=== PATIENT | female | born 1950 | race Caucasian/White ===

== ENCOUNTER 2016-11-19 13:59 | Emergency (ER) | payer MEDICAID, OTHER ==
[~2016-11-19 13:59] MED LIST: BENGAY TOP; DIGO0.12 PO; LACT12%T TOPICAL; NYSTA15T TOPICAL; PROT40TA PO; Z.0.WALKERFRONT
[2016-11-19 14:00] VITALS: BP 110/56; PULSE 98; RESP 16; TEMP 98.9; O2SAT 98
--- NOTE | 2016-11-19 15:21 | RADRPT ---
EXAM DATE/TIME: 11/19/2016 14:50 [facility] COMPARISON: No previous studies available for comparison. INDICATIONS : Left femur pain, fell MEDICAL HISTORY : Chronic obstructive pulmonary disease. SURGICAL HISTORY : Esophageal surgery. ENCOUNTER: Initial ACUITY: 1 day PAIN SCORE: 10/10 LOCATION: Left Femur FINDINGS: 4 views of the left femur. Bone alignment within normal limits. No evidence of fracture. Diffuse art erial calcification. CONCLUSION: No evidence of fracture. Nolan Mccarthy MD on November 19, 2016 at 15:19 Board Certified Radiologist. This report was verified electronically.
--- NOTE | 2016-11-19 15:58 | PD ---
HPI Chief Complaint: Fall Time Seen by Provider: 15:46 Travel History International Travel<30 days: No Contact w/Intl Traveler<30days: No Traveled to known affect area: No History of Present Illness HPI Patient comes in complaining of left side pain began after a mechanical fall earlier today. Patient reports she ambulate with a walker. Patient states she lost her balance slip and fall, landing on her left side. Patient complaining of a spasming aching pain in her left femur midshaft. Patient denies doing anything for this. Patient denies anything making it better. Pain is worse with movement and palpation. Patient denies any chest pain pre-or post fall, headache, head injury, dizziness, change in vision or shortness breath, nausea, vomiting, loss or change in bowel or bladder,. PFSH Past Medical History Blood Disorders: No Cancer: No Cardiovascular Problems: No Diminished Hearing: No Endocrine: No Immune Disorder: No Musculoskeletal: No Neurologic: No Respiratory: No Seizures: Yes (last 4 years ) Past Surgical History Other Surgery: Yes (esophagus for dilitation, right ankle with pins in place ) Social History Alcohol Use: Yes (everyday) Tobacco Use: Yes (1/2 PPD) Substance Use: No Allergies-Medications (Allergen,Severity, Reaction): Coded Allergies: No Known Allergies (Verified , 06/25/15) Reported Meds & Prescriptions Reported Meds & Active Scripts Active Protonix (Pantoprazole Sodium) 40 Mg Tab 40 Mg PO Q12HR 30 Days Mycostatin Oint 15 gm (Nystatin) 15 Applic/15 Gm Oint 0 Applic TOPICAL BID 30 Days [place] (Menthol/Methyl Salicylate) 30 Gm Oint 1 Applic TOP QID PRN 30 Days Lac-Hydrin (Lactic Acid) 12 % Lotn 1 Applic TOPICAL BID 30 Days Digoxin 0.125 mg (Digoxin) 0.125 Mg Tab 0.125 Mg PO DAILY 30 Days Walker Front Wheel (Walkerfront) Device 1 Unit Review of Systems Except as stated in HPI: all other systems reviewed are Neg Physical Exam Narrative GENERAL: Well-developed, well nourished, in no acute distress, and non-ill appearing. SKIN: Focused skin assessment warm and dry. HEAD: Atraumatic. Normocephalic. EYES: Pupils equal and round. EOMI. No scleral icterus. No injection or drainage. ENT: No nasal bleeding or discharge. Mucous membranes pink and moist. NECK: Trachea midline. Supple. No nuclear rigidity. RESPIRATORY: No accessory muscle use. No respiratory distress. MUSCULOSKELETAL: No obvious deformities. No clubbing. No cyanosis. No edema. Full range of motion. Hip: FROM and equal BL with passive flexion, extension, Abduction, Adduction, and internal/external rotation. Pulses equal BL distal to injury. Capillary refill less than 2 seconds distal to injury and equal BL. FROM distal to injury and equal BL. Strength distal to injury equal BL. NV intact distal to injury and equal BL. Plantar flexion and dorsal flexion equal BL. Dorsal pulses equal BL. Sensation equal BL 1st web space. Patient reports tenderness to palpation over mid left thigh lateral aspect. There is no contusion, abrasion, or other traumatic injury. NEUROLOGICAL: Awake and alert. No obvious cranial nerve deficits. Motor grossly within normal limits. Normal speech. PSYCHIATRIC: Appropriate mood and affect; insight and judgment normal. Data Data Last Documented VS Vital Signs Date Time Temp Pulse Resp B/P (MAP) Pulse Ox O2 Delivery O2 Flow Rate FiO2 11/19/16 21:00 80 16 145/87 (106) 95 11/19/16 20:57 Room Air 11/19/16 14:00 98.9 Orders Orders Femur (Ap & Lat/2vws) (11/19/16 ) Ice/Cold Pack (11/19/16 15:55) Acetaminophen (Tylenol) (11/19/16 16:00) Ketorolac Inj (Toradol Inj) (11/19/16 18:45) Acetamin-Hydrocod 325-5 Mg ([place] 5-325 (11/19/16 18:45) [facility] Medical Decision Making Medical Screen Exam Complete: Yes Emergency Medical Condition: Yes Interpretation(s) Left femur x-ray read by the radiologist: No evidence of fracture. Differential Diagnosis Fracture, strain, contusion, other Narrative Course The patient appears to have suffered a contusion of the extremity. There is no clinical evidence to suspect bony injury by exam. Radiographic examination revealed no fracture seen at this time. The patient has full range of motion on active and passive motions. There is no significant edema. There is no proximal or distal joint effusion. The distal extremity appears neurovascularly intact, without evidence of neurovascular injury nor compartment syndrome. Tendon exam also was intact. The patient was discharged on pain medication instructions and given warnings for vascular compromise. The patient is to follow up with their regular physician or Orthopedics. The patient agrees with plan. Patient in no obvious distress upon re-evaluation. All pertinent Radiology result(s) discussed with patient. Discussed patient with Dr. Villegas prior to discharge, who is in agreement with plan of care and disposition. Any questions/ concerns in reference to patient diagnosis/condition discussed and clarified prior to patient's discharge. Reinforced sheer importance of close follow up with patient's primary physician or primary care clinic. Instructed patient to return to ED immediately, if symptoms return/worsen. Patient showed understanding of above instructions. Further instructions and recommendations were detailed in discharge paperwork. Patient ambulated without difficulty out of ED at discharge. Diagnosis Primary Impression: Contusion of left thigh, initial encounter Patient Instructions: Contusion in Adults (ED), General Instructions Additional Instructions: Follow-up with your primary care physician next week for reevaluation. Use over -the-counter Tylenol as needed for pain. Follow instructions on the packaging. Apply ice to affected area 20 minutes per hour as needed. Return to the emergency department if symptoms get worse. Disposition: 01 DISCHARGE HOME Condition: Stable Tong Gordon Nov 19, 2016 15:58
[2016-11-19] MEDS ORDERED: ACETAMINOPHEN 500 MG CPLT PO ONE (16:00)
[2016-11-19] MEDS ORDERED: ACETAMINOPHEN/HYDROcodone 325 MG/5 MG TAB PO ONE (18:45)
[2016-11-19] MEDS ORDERED: KETOROLAC TROMETHAMINE 30 MG/ML (IVP) VIAL IV PUSH ONE (18:45)
[2016-11-19 21:00] VITALS: BP 145/87
== END 2016-11-19 20:30 | disposition home or self-care (01) ==
LOC: NEDAMB 13:59
DX: S70.12XA Contusion of left thigh, initial encounter (principal); W01.0XXA Fall on same level from slipping, tripping and stumbling without subsequent striking against object, initial encounter; Y93.01 Activity, walking, marching and hiking; Y92.9 Unspecified place or not applicable; Z72.0 Tobacco use
CPT/HCPCS: 73552; 96374; 99284; J1885

== ENCOUNTER 2017-02-03 16:19 | Inpatient (IN) | payer SELFPAY ==
[2017-02-03 16:21] VITALS: BP 110/58; PULSE 114; RESP 16; TEMP 97.4; O2SAT 99
[2017-02-03] MEDS ORDERED: SODIUM CHLOR 0.9% 1000 ML INJ 1,000 ML IV ONE (17:08)
--- NOTE | 2017-02-03 17:13 | PD ---
HPI Chief Complaint: Medical Clearance Time Seen by Provider: 16:58 Travel History International Travel<30 days: No Contact w/Intl Traveler<30days: No Traveled to known affect area: No History of Present Illness HPI 66-year-old female presents to the emergency department for generalized weakness. Patient states she has been generally weak for approximately a month and has not been able to walk without falling. She reports her last fall was 3 days ago. Patient comes soaked in and covered with urine and stool. She is unable to transfer from wheelchair to the bed. The patient reports history of esophagitis and states she has not eaten solid food approximately 3 weeks. She denies any fevers or chills. She states she has anterior chest wall pain after she fell and hit her chest against a wheelchair, no radiation of pain. Patient states that she does rent a house and her landlord brought her here. Patient denies any shortness breath. No abdominal pain. No nausea, vomiting, diarrhea. She reports that she is not currently prescribed medications. Other than the history of esophagitis, she reports no other chronic medical problems. Moderate severity. No exacerbating or alleviating factors. Patient does report that she drinks one beer daily. PFSH Past Medical History Blood Disorders: No Cancer: No Cardiovascular Problems: No Diminished Hearing: No Endocrine: No Immune Disorder: No Musculoskeletal: No Neurologic: No Respiratory: No Seizures: Yes (last 4 years ) Past Surgical History Other Surgery: Yes (esophagus for dilitation, right ankle with pins in place ) Social History Alcohol Use: Yes (everyday) Tobacco Use: Yes (1/2 PPD) Substance Use: No Allergies-Medications (Allergen,Severity, Reaction): Coded Allergies: No Known Allergies (Verified Adverse Reaction, Unknown, 02/03/17) Reported Meds & Prescriptions Reported Meds & Active Scripts Active Active Prescriptions or Reported Medications Unobtainable Review of Systems Except as stated in HPI: all other systems reviewed are Neg Physical Exam Narrative GENERAL: Thin, chronically ill female patient, afebrile. SKIN: Focused skin assessment warm/dry. HEAD: Normocephalic. Atraumatic. ENT: Mucosa pink and moist. No erythema or exudates. No uvular edema. No uvular , palatal, or tonsillar deviation. Airway patent. Nasal turbinates appear normal without nasal blood, purulent drainage or septal hematoma. Bilateral tympanic membranes are clear without erythema or perforation. EYES: No scleral icterus. No injection or drainage. NECK: Supple, trachea midline. No JVD or lymphadenopathy. CARDIOVASCULAR: Regular rate and rhythm without murmurs, gallops, or rubs. Bilateral radial and pedal pulses are 2+. RESPIRATORY: Breath sounds equal bilaterally. No accessory muscle use. Sounds are clear to auscultation. GASTROINTESTINAL: Abdomen soft, non-tender, nondistended. No abdominal pain to palpation. MUSCULOSKELETAL: No cyanosis, or edema. Mild tenderness over anterior chest wall. BACK: Nontender without obvious deformity. No CVA tenderness. Data Data Last Documented VS Vital Signs Date Time Temp Pulse Resp B/P (MAP) Pulse Ox O2 Delivery O2 Flow Rate FiO2 02/03/17 19:28 98 18 100/69 (79) 98 02/03/17 17:15 Room Air 02/03/17 16:21 97.4 Orders Orders Electrocardiogram (02/03/17 17:08) Complete Blood Count With Diff (02/03/17 17:08) Comprehensive Metabolic Panel (02/03/17 17:08) Magnesium (Mg) (02/03/17 17:08) Ckmb (Isoenzyme) Profile (02/03/17 17:08) Troponin I (02/03/17 17:08) Act Partial Throm Time (Ptt) (02/03/17 17:08) Prothrombin Time / Inr (Pt) (02/03/17 17:08) Urinalysis - C+S If Indicated (02/03/17 17:08) Chest, Single Ap (02/03/17 17:08) Ct Brain W/O Iv Contrast(Rout) (02/03/17 17:08) Ct Cerv Spine W/O Contrast (02/03/17 17:08) Ecg Monitoring (02/03/17 17:08) Iv Access Insert/Monitor (02/03/17 17:08) Oximetry (02/03/17 17:08) Sodium Chloride 0.9% Flush (Ns Flush) (02/03/17 17:15) Sodium Chlor 0.9% 1000 Ml Inj (Ns 1000 M (02/03/17 17:08) Cath For Specimen (02/03/17 17:08) Alcohol (Ethanol) (02/03/17 17:16) Urine Culture (12/13/17 16:55) CKMB (02/03/17 18:05) CKMB% (02/03/17 18:05) Admit Order (Ed Use Only) (02/03/17 20:16) Labs Laboratory Tests Test 02/03/17 16:55 02/03/17 18:05 Urine Color YELLOW Urine Turbidity HAZY Urine pH 6.0 Urine Specific [place] 1.017 Urine Protein 30 mg/dL Urine Glucose (UA) NEG mg/dL Urine Ketones 150 mg/dL Urine Occult Blood NEG Urine Nitrite NEG Urine Bilirubin NEG Urine Urobilinogen 4.0 MG/DL Urine Leukocyte Esterase SMALL Urine RBC 1 /hpf Urine WBC 1 /hpf Urine Squamous Epithelial Cells 1 /hpf Urine Amorphous Sediment RARE Urine Bacteria MANY /hpf Urine Mucus FEW /lpf Microscopic Urinalysis Comment CULTURE INDICATED White Blood Count 6.7 TH/MM3 Red Blood Count 4.09 MIL/MM3 Hemoglobin 14.3 GM/DL Hematocrit 41.0 % Mean Corpuscular Volume 100.2 FL Mean Corpuscular Hemoglobin 34.8 PG Mean Corpuscular Hemoglobin Concent 34.8 % Red Cell Distribution Width 14.6 % Platelet Count 194 TH/MM3 Mean Platelet Volume 9.1 FL Neutrophils (%) (Auto) 77.9 % Lymphocytes (%) (Auto) 15.3 % Monocytes (%) (Auto) 6.4 % Eosinophils (%) (Auto) 0.0 % Basophils (%) (Auto) 0.4 % Neutrophils # (Auto) 5.2 TH/MM3 Lymphocytes # (Auto) 1.0 TH/MM3 Monocytes # (Auto) 0.4 TH/MM3 Eosinophils # (Auto) 0.0 TH/MM3 Basophils # (Auto) 0.0 TH/MM3 CBC Comment DIFF FINAL Differential Comment Prothrombin Time 11.7 SEC Prothromb Time International Ratio 1.2 RATIO Activated Partial Thromboplast Time 29.4 SEC Blood Urea Nitrogen 4 MG/DL Creatinine 0.24 MG/DL Random Glucose 87 MG/DL Total Protein 5.7 GM/DL Albumin 1.6 GM/DL Calcium Level 7.3 MG/DL Magnesium Level 1.5 MG/DL Alkaline Phosphatase 108 U/L Aspartate Amino Transf (AST/SGOT) 54 U/L Alanine Aminotransferase (ALT/SGPT) 36 U/L Total Bilirubin 0.5 MG/DL Sodium Level 131 MEQ/L Potassium Level 4.1 MEQ/L Chloride Level 98 MEQ/L Carbon Dioxide Level 16.0 MEQ/L Anion Gap 17 MEQ/L Estimat Glomerular Filtration Rate 290 ML/MIN Protein Corrected Calcium 8.1 MG/DL Total Creatine Kinase 454 U/L Creatine Kinase MB 6.5 NG/ML Creatine Kinase MB % 1.4 % Troponin I LESS THAN 0.02 NG/ML MDM Medical Decision Making Medical Screen Exam Complete: Yes Emergency Medical Condition: Yes Medical Record Reviewed: Yes Differential Diagnosis Electrolyte abnormality versus dehydration versus malnutrition versus intracranial abnormality versus UTI versus sepsis Narrative Course 66-year-old thin, chronically ill patient presents to the emergency department for evaluation generalized weakness, unable to walk, multiple falls. EKG, CBC, CMP, magnesium, CK, troponin, PTT, PT/INR, alcohol level, UA are ordered and pending. Chest x-ray, CT of the brain, CT of the cervical spine are ordered and pending. Patient is given normal saline 1 L IV bolus. EKG shows sinus rhythm with occasional PVC, heart rate 92. CBC shows no acute abnormality. CMP shows hyponatremia 131, anion gap of 17. Magnesium is 1.5. CK is 454. Troponin is less than 0.02. Coags show no acute abnormality. UA shows many bacteria, small leukocyte esterase. Chest x-ray shows no active disease, no effusion or pneumothorax. CT of the brain shows cerebral and cerebellar atrophy out of proportion to age, redemonstration of widespread white matter demyelination, no acute intracranial abnormality. CT of the cervical spine shows no acute findings. Patient is unable to ambulate is not a safe discharge home. Patient will be admitted for generalized weakness. Dr. Crane accepted admission. Diagnosis Primary Impression: Generalized weakness Additional Impression: Esophagitis Admitting Information Admitting Physician Requests: Observation Scripts Unable to Obtain Active Prescriptions or Reported Meds Savita Peter Feb 03, 2017 17:13
[2017-02-03 17:15] VITALS: BP 100/69; PULSE 105; RESP 18; O2SAT 99
[2017-02-03] MEDS ORDERED: SODIUM CHLORIDE 0.9% FLUSH 10 ML FLUSH IVF PRN (17:15)
--- NOTE | 2017-02-03 18:04 | RADRPT ---
EXAM DATE/TIME: 02/03/2017 17:46 [facility] COMPARISON: CT BRAIN W/O CONTRAST, June 25, 2015, 20:08. INDICATIONS : Trauma; fall. RADIATION DOSE: 26.65 CTDIvol (mGy) MEDICAL HISTORY : Seizures. Chronic obstructive pulmonary disease. SURGICAL HISTORY : None. ENCOUNTER: Initial ACUITY: 1 day PAIN SCALE: 5/10 LOCATION: cranial TECHNIQUE: Multiple contiguous axial images were obtained of the head. Using automated exposure control and adj ustment of the mA and/or kV according to patient size, radiation dose was kept as low as reasonably a chievable to obtain optimal diagnostic quality images. DICOM format image data is available electro nically for review and comparison. FINDINGS: CEREBRUM: Moderate diffuse renal atrophy with prominent periventricular white matter hypodensities. Coarse bila teral basal ganglia calcifications. The ventricles are normal for degree of atrophy. No evidence of midline shift, mass lesion, hemorrhage or acute infarction. No extra-axial fluid collections are see n. POSTERIOR FOSSA: Prominent cerebellar atrophy. Redemonstration of diffusely decreased density in the mellissa. The cerebel lum and brainstem are otherwise intact. The 4th ventricle is midline. The cerebellopontine angle is unremarkable. EXTRACRANIAL: The visualized portion of the orbits is intact. SKULL: The calvaria is intact. No evidence of skull fracture. CONCLUSION: 1. Cerebral and cerebellar atrophy out of proportion to age. 2. Redemonstration of widespread white matter demyelination. 3. No acute intracranial amount. Edin Whittaker MD on February 03, 2017 at 18:00 Board Certified Radiologist. This report was verified electronically.
--- NOTE | 2017-02-03 18:08 | RADRPT ---
EXAM DATE/TIME: 02/03/2017 17:46 [facility] COMPARISON: No previous studies available for comparison. INDICATIONS : Trauma; fall. RADIATION DOSE: 18.05 CTDIvol (mGy) MEDICAL HISTORY : Seizures. Chronic obstructive pulmonary disease. SURGICAL HISTORY : None. ENCOUNTER: Initial ACUITY: 1 day PAIN SCALE: 5/10 LOCATION: Bilateral neck TECHNIQUE: Volumetric scanning of the cervical spine was performed. Multiplanar reconstructions in the sagittal, coronal and oblique axial planes were performed. Using automated exposure control and adjustment o f the mA and/or kV according to patient size, radiation dose was kept as low as reasonably achievable to obtain optimal diagnostic quality images. DICOM format image data is available electronically f or review and comparison. FINDINGS: No acute fracture. Moderate degenerative disc disease at C5-6 and C6- 7 with mild degenerative iban listhesis of C5 on C6. Findings stable compared with June 2015. CONCLUSION: 1. No acute findings. Stable degenerative changes compared with 2016. Rudi Plunkett MD on February 03, 2017 at 18:04 Board Certified Radiologist. This report was verified electronically.
--- NOTE | 2017-02-03 18:11 | RADRPT ---
EXAM DATE/TIME: 02/03/2017 17:52 [facility] COMPARISON: No previous studies available for comparison. INDICATIONS : Chest pain after fall. MEDICAL HISTORY : Chronic obstructive pulmonary disease. SURGICAL HISTORY : None. ENCOUNTER: Initial ACUITY: 1 day PAIN SCORE: Non-responsive. LOCATION: Bilateral chest FINDINGS: A single view of the chest demonstrates the lungs to be symmetrically aerated without evidence of mas s, infiltrate or effusion. The cardiomediastinal contours are unremarkable. Osseous structures are intact. CONCLUSION: 1. No active disease. No effusion or pneumothorax. Rudi Plunkett MD on February 03, 2017 at 18:09 Board Certified Radiologist. This report was verified electronically.
[2017-02-03 18:54] LABS: AUTOMATED NEUTROPHIL # 5.2 TH/MM3 (1.8-7.7); BASOPHIL % 0.4 % (0.0-2.0); HEMO FLAGS DIFF FINAL; LYMPH % 15.3 % (9.0-44.0); MEAN CELL VOLUME 100.2 FL (80.0-100.0); MEAN CORPUSCULAR HEMOGLOBIN 34.8 PG (27.0-34.0); MEAN CORPUSCULAR HGB CONC 34.8 % (32.0-36.0); MONO % 6.4 % (0.0-8.0); NEUT % 77.9 % (16.0-70.0); PLATELET COUNT 194 TH/MM3 (150-450); RED BLOOD COUNT 4.09 MIL/MM3 (4.00-5.30); RED CELL DISTRIBUTION WIDTH 14.6 % (11.6-17.2); WHITE BLOOD COUNT 6.7 TH/MM3 (4.0-11.0)
[2017-02-03 19:04] LABS: APTT (PATIENT) 29.4 SEC (24.3-30.1); INTERNATIONAL NORMALIZED RATIO 1.2 RATIO; PROTHROMBIN TIME - PATIENT 11.7 SEC (9.8-11.6)
[2017-02-03 19:10] LABS: BACTERIA, URINE MANY /hpf; BLOOD, URINE NEG (NEG); COMMENT (UR) CULTURE INDICATED; CULTURE IF INDICATED CULTURE INDICATED; GLUCOSE,URINE NEG (NEG); KETONE, URINE 150 mg/dL (NEG); MUCUS URINE FEW /lpf (OCC); NITRITE,URINE NEG (NEG); SQUAMOUS EPITHELIAL CELL URINE 1 /hpf (0-5); URINE COLOR YELLOW (YELLW/STRAW)
[2017-02-03 19:19] LABS: ALKALINE PHOSPHATASE 108 U/L (45-117); ALT (GPT) 36 U/L (10-53); ANION GAP 17 MEQ/L (5-15); AST (GOT) 54 U/L (15-37); BLOOD UREA NITROGEN 4 MG/DL (7-18); CALCIUM-PROTEIN CORRECTED 8.1 MG/DL (8.5-10.1); CHLORIDE 98 MEQ/L (98-107); CREATINE KINASE 454 U/L (26-192); GLOMERULAR FILTRATION RATE 290 ML/MIN (>89); MAGNESIUM 1.5 MG/DL (1.5-2.5); POTASSIUM 4.1 MEQ/L (3.5-5.1); SODIUM (NA) 131 MEQ/L (136-145); TOTAL BILIRUBIN ADULT 0.5 MG/DL (0.2-1.0)
[2017-02-03 19:28] VITALS: BP 100/69; PULSE 98; RESP 18; O2SAT 98
[2017-02-03 19:57] LABS: CKMB 6.5 NG/ML (0.5-3.6)
--- NOTE | 2017-02-03 20:38 | HHI.HP ---
[facility] Service [facility] Primary Care Physician No Primary Care Physician Admission Diagnosis generalized weakness, esophagitis Diagnoses: Travel History International Travel<30 Days: No Contact w/Intl Traveler <30 Da: No Traveled to Known Affected Are: No History of Present Illness 66-year-old female with past medical history significant for unspecified esophageal disease status post which she believes to be esophageal dilation many years ago presents with weakness and inability to get out of bed for an indeterminate amount of time. The patient reports that she stays in bed and has a friend come over to take care of her every day. The patient endorses new onset dysphagia stating she has been unable to tolerate by mouth food for approximately 3 weeks. She states it feels as though it gets "stuck in her throat." The patient reports that she has had multiple falls over the past month and was unable to transfer from her wheelchair to the bed upon arrival to the emergency department. Review of Systems Denies fever or chills Denies blurry vision, otorrhea, rhinorrhea Denies sore throat and cough No chest pain, palpitations, shortness of breath No abdominal pain Denies constipation/diarrhea/nausea/vomiting Denies muscle pain/weakness No rashes Past Family Social History Past Medical History Questionable esophageal stricture Past Surgical History Remote history of esophageal dilation Reported Medications None Allergies: Coded Allergies: No Known Allergies (Verified Adverse Reaction, Unknown, 02/03/17) Family History Denies family history of CAD/DM Social History Reportedly smokes 1 pack per day. States she has been doing this for most of her life. Drinks one beer per day. Denies marijuana or illicit drugs. Physical Exam Vital Signs Vital Signs Date Time Temp Pulse Resp B/P (MAP) Pulse Ox O2 Delivery O2 Flow Rate FiO2 02/03/17 19:28 98 18 100/69 (79) 98 02/03/17 17:15 105 18 100/69 (79) 99 Room Air 02/03/17 16:21 97.4 114 16 110/58 (75) 99 Physical Exam GENERAL: Frail appearing female lying in bed SKIN: No rashes, ecchymoses or lesions. Cool and dry. HEAD: Atraumatic. Normocephalic. No temporal or scalp tenderness. EYES: Pupils equal round and reactive. Extraocular motions intact. No scleral icterus. No injection or drainage. ENT: Nose without bleeding, purulent drainage or septal hematoma. Throat without erythema, tonsillar hypertrophy or exudate. Uvula midline. Airway patent. NECK: Trachea midline. No JVD or lymphadenopathy. Supple, nontender, no meningeal signs. CARDIOVASCULAR: Regular rate and rhythm without murmurs, gallops, or rubs. RESPIRATORY: Clear to auscultation. Breath sounds equal bilaterally. No wheezes , rales, or rhonchi. GASTROINTESTINAL: Abdomen soft, non-tender, nondistended. No hepato-splenomegaly , or palpable masses. No guarding. MUSCULOSKELETAL: Extremities without clubbing, cyanosis, or edema. No joint tenderness, effusion, or edema noted. No calf tenderness. NEUROLOGICAL: Awake and alert. Cranial nerves II through XII intact. Motor and sensory grossly within normal limits. Normal speech. Laboratory Laboratory Tests Test 02/03/17 16:55 02/03/17 18:05 Urine Color YELLOW Urine Turbidity HAZY Urine pH 6.0 Urine Specific [place] 1.017 Urine Protein 30 Urine Glucose (UA) NEG Urine Ketones 150 Urine Occult Blood NEG Urine Nitrite NEG Urine Bilirubin NEG Urine Urobilinogen 4.0 Urine Leukocyte Esterase SMALL Urine RBC 1 Urine WBC 1 Urine Squamous Epithelial Cells 1 Urine Amorphous Sediment RARE Urine Bacteria MANY Urine Mucus FEW Microscopic Urinalysis Comment CULTURE INDICATED White Blood Count 6.7 Red Blood Count 4.09 Hemoglobin 14.3 Hematocrit 41.0 Mean Corpuscular Volume 100.2 Mean Corpuscular Hemoglobin 34.8 Mean Corpuscular Hemoglobin Concent 34.8 Red Cell Distribution Width 14.6 Platelet Count 194 Mean Platelet Volume 9.1 Neutrophils (%) (Auto) 77.9 Lymphocytes (%) (Auto) 15.3 Monocytes (%) (Auto) 6.4 Eosinophils (%) (Auto) 0.0 Basophils (%) (Auto) 0.4 Neutrophils # (Auto) 5.2 Lymphocytes # (Auto) 1.0 Monocytes # (Auto) 0.4 Eosinophils # (Auto) 0.0 Basophils # (Auto) 0.0 CBC Comment DIFF FINAL Differential Comment Prothrombin Time 11.7 Prothromb Time International Ratio 1.2 Activated Partial Thromboplast Time 29.4 Blood Urea Nitrogen 4 Creatinine 0.24 Random Glucose 87 Total Protein 5.7 Albumin 1.6 Calcium Level 7.3 Magnesium Level 1.5 Alkaline Phosphatase 108 Aspartate Amino Transf (AST/SGOT) 54 Alanine Aminotransferase (ALT/SGPT) 36 Total Bilirubin 0.5 Sodium Level 131 Potassium Level 4.1 Chloride Level 98 Carbon Dioxide Level 16.0 Anion Gap 17 Estimat Glomerular Filtration Rate 290 Protein Corrected Calcium 8.1 Total Creatine Kinase 454 Creatine Kinase MB 6.5 Creatine Kinase MB % 1.4 Troponin I LESS THAN 0.02 Date/Time Source Procedure Growth Status 02/03/17 16:55 Urine Random Urine Urine Culture Pending Received Result Diagram: 02/03/17 18002/03/17 180 Caprini VTE Risk Assessment Caprini VTE Risk Assessment: Mod/High Risk (score >= 2) Caprini Risk Assessment Model Point Value = 1 Point Value = 2 Point Value = 3 Point Value = 5 Age 41-60 Minor surgery BMI > 25 kg/m2 Swollen legs Varicose veins or History of unexplained or recurrent spontaneous Oral contraceptives or hormone replacement Sepsis (< 1 month) Serious lung disease, including pneumonia (< 1 month) Abnormal pulmonary function Acute myocardial infarction Congestive heart failure (< 1 month) History of inflammatory bowel disease Medical patient at bed rest Age 61-74 Arthroscopic surgery Major open surgery (> 45 min) Laparoscopic surgery (> 45 min) Malignancy Confined to bed (> 72 hours) Immobilizing plaster cast Central venous access Age >= 75 History of VTE Family history of VTE Factor V Leiden Prothrombin [id number] Lupus anticoagulant Anticardiolipin antibodies Elevated serum homocysteine Heparin-induced thrombocytopenia Other congenital or acquired thrombophilia Stroke (< 1 month) Elective arthroplasty Hip, pelvis, or leg fracture Acute spinal cord injury (< 1 month) Prophylaxis Regimen Total Risk Factor Score Risk Level Prophylaxis Regimen 0-1 Low Early ambulation 2 Moderate Order ONE of the following: *Sequential Compression Device (SCD) *Heparin 5000 units SQ BID 3-4 Higher Order ONE of the following medications: *Heparin 5000 units SQ TID *Enoxaparin/Lovenox 40 mg SQ daily (WT < 150 kg, CrCl > 30 mL/min) *Enoxaparin/Lovenox 30 mg SQ daily (WT < 150 kg, CrCl > 10-29 mL/min) *Enoxaparin/Lovenox 30 mg SQ BID (WT < 150 kg, CrCl > 30 mL/min) AND/OR *Sequential Compression Device (SCD) 5 or more Highest Order ONE of the following medications: *Heparin 5000 units SQ TID (Preferred with Epidurals) *Enoxaparin/Lovenox 40 mg SQ daily (WT < 150 kg, CrCl > 30 mL/min) *Enoxaparin/Lovenox 30 mg SQ daily (WT < 150 kg, CrCl > 10-29 mL/min) *Enoxaparin/Lovenox 30 mg SQ BID (WT < 150 kg, CrCl > 30 mL/min) AND *Sequential Compression Device (SCD) Assessment and Plan Assessment and Plan Assessment/plan: 1. Progressively worsening generalized weakness/failure to thrive/dysphasia Head CT with cerebellar and cerebral atrophy out of proportion to age and widespread white matter demyelination, patient without lateralizing deficits Concern for esophageal stricture given dysphasia, gastroenterology consulted The patient is likely unsafe to live on her own, physical therapy evaluation ordered. She will likely need placement. Albumin 1.6 Regular diet with ensure supplementation once patient able to tolerate by mouth 2. Alcohol/tobacco abuse Cessation counseling provided Folate/thiamine/multivitamins [facility] protocol FEN CLD Monitor electrolytes SCDs Case discussed with ER physician at length Randee Crane MD Feb 03, 2017 20:38
[2017-02-03 20:46] LABS: ALCOHOL LESS THAN 3 MG/DL (0-5)
[2017-02-03] MEDS ORDERED: SODIUM CHLORIDE 0.9% FLUSH 10 ML FLUSH IV FLUSH PRN (21:00)
[2017-02-03] MEDS: SODIUM CHLORIDE 0.9% FLUSH 10 ML FLUSH IV FLUSH SCH (21:00)
[2017-02-03] MEDS ORDERED: ONDANSETRON HCL 4 MG/2 ML VIAL IVP PRN (21:00)
[2017-02-03] MEDS ORDERED: FLUMAZENIL 0.5 MG/5 ML VIAL IV PUSH PRN (21:00)
[2017-02-03] MEDS ORDERED: LORazepam 1 MG TAB PO PRN (21:00)
[2017-02-03] MEDS ORDERED: ACETAMINOPHEN 325 MG TAB PO PRN (21:00)
[2017-02-03] MEDS ORDERED: NALOXONE HCL 0.4 MG/ML AMP IV PUSH PRN (21:00)
[2017-02-03] MEDS ORDERED: LORazepam 2 MG TAB PO PRN (21:00)
[2017-02-03 21:57] VITALS: BP 98/63; PULSE 97; RESP 17; TEMP 98; O2SAT 97
[2017-02-04] VITALS (8 sets, daily range): BP systolic 88–116; BP diastolic 51–75; PULSE 67–107; RESP 15–18; TEMP 98–98.3; O2SAT 91–97
[2017-02-04 07:01] LABS: AUTOMATED NEUTROPHIL # 3.2 TH/MM3 (1.8-7.7); BASOPHIL % 0.4 % (0.0-2.0); EOSINOPHIL % 0.5 % (0.0-4.0); HEMATOCRIT 35.4 % (35.0-46.0); HEMO FLAGS DIFF FINAL; LYMPH % 27.1 % (9.0-44.0); LYMPHOCYTE # 1.3 TH/MM3 (1.0-4.8); MEAN CELL VOLUME 100.9 FL (80.0-100.0); MEAN CORPUSCULAR HEMOGLOBIN 34.8 PG (27.0-34.0); MEAN CORPUSCULAR HGB CONC 34.5 % (32.0-36.0); MONO % 7.7 % (0.0-8.0); NEUT % 64.3 % (16.0-70.0); PLATELET COUNT 151 TH/MM3 (150-450); RED BLOOD COUNT 3.51 MIL/MM3 (4.00-5.30); RED CELL DISTRIBUTION WIDTH 14.7 % (11.6-17.2); WHITE BLOOD COUNT 4.9 TH/MM3 (4.0-11.0)
[2017-02-04 07:38] LABS: POTASSIUM 3.4 MEQ/L (3.5-5.1)
[2017-02-04 07:55] LABS: CALCIUM-PROTEIN CORRECTED 8.9 MG/DL (8.5-10.1)
--- NOTE | 2017-02-04 09:32 | PD.CONS ---
HPI History of Present Illness This is a 66 year old female with hx severe esophagitis who presents with dysphagia, inability to walk, weakness. Onset 3 weeks ago. ARound this time she did have a fall. When she eats she feels like it gets stuck and indicates sternal area, and then she vomits the food back up. This is mostly with solid food but sometimes liquids. She had episode of this and says a surgery was done. Per EMR she had EGD 01/2015 with findings of LA class D esophagitis, poss candidiasis esophagus , tight GE junction and scope not passed through d/t bleeding and tearing of mucosa on contact. She had subsequent EGD in 06/[address] Dumont and dilatation of esophageal stricture, path benign. She has never follow up in our office. SHe thinks she has lost weight from not being able to eat but she does not know for sure. Denies n/v, diarrhea, constipation, blood in stool, black tarry stool. Never had colonoscopy. (Marlee Acuña) [facility] Past Medical History Class D esophagitis esophageal stricture Past Surgical History history of esophageal dilation ankle surgery (Marlee Acuña) Coded Allergies: No Known Allergies (Verified Allergy, Unknown, 02/03/17) Family History Denies family history of CAD/DM Social History Reportedly smokes 1 pack per day. States she has been doing this for most of her life. Drinks one beer per day. Denies marijuana or illicit drugs. (Marlee Acuña) Review of Systems Constitutional: COMPLAINS OF: Weight loss Eyes: DENIES: Blurred vision Ears, nose, mouth, throat: DENIES: Hearing loss Respiratory: COMPLAINS OF: Cough Cardiovascular: DENIES: Chest pain Gastrointestinal: COMPLAINS OF: Difficulty Swallowing, DENIES: Abdominal pain, Black stools, Bloody stools, Constipation, Diarrhea, Nausea, Vomiting, Hematemesis Genitourinary: DENIES: Hematuria Musculoskeletal: DENIES: Joint Swelling Integumentary: DENIES: Pruritus Neurologic: COMPLAINS OF: Localized weakness Psychiatric: DENIES: Confusion (Marlee Acuña) GI Exam Vitals I&O Vital Signs Date Time Temp Pulse Resp B/P (MAP) Pulse Ox O2 Delivery O2 Flow Rate FiO2 02/04/17 08:00 98.1 105 16 116/75 (89) 97 12/14/17 03:04 98.1 98 17 101/57 (72) 97 02/03/17 21:57 98.0 97 17 98/63 (75) 97 02/03/17 21:31 02/03/17 19:28 98 18 100/69 (79) 98 02/03/17 17:15 105 18 100/69 (79) 99 Room Air 02/03/17 16:21 97.4 114 16 110/58 (75) 99 I/O 02/03/17 02/03/17 02/03/17 02/04/17 02/04/17 02/04/17 06:59 14:59 22:59 06:59 14:59 22:59 Intake Total 1000 ml Balance 1000 ml Intake IV Total 1000 ml Imaging Last Impressions Head CT 02/03/171707 Signed Impressions: Service Date/Time: Friday, February 03, 2017 17:46 - CONCLUSION: 1. Cerebral and cerebellar atrophy out of proportion to age. 2. Redemonstration of widespread white matter demyelination. 3. No acute intracranial amount. Edin Whittaker MD Chest X-Ray 02/03/171707 Signed Impressions: Service Date/Time: Friday, February 03, 2017 17:52 - CONCLUSION: 1. No active disease. No effusion or pneumothorax. Rudi Plunkett MD Cervical Spine CT 02/03/171707 Signed Impressions: Service Date/Time: Friday, February 03, 2017 17:46 - CONCLUSION: 1. No acute findings. Stable degenerative changes compared with 2016. Rudi Plunkett MD Laboratory Test 02/03/17 16:55 02/03/17 18:05 02/04/17 05:58 Urine Color YELLOW Urine Turbidity HAZY Urine pH 6.0 Urine Specific [place] 1.017 Urine Protein 30 mg/dL Urine Glucose (UA) NEG mg/dL Urine Ketones 150 mg/dL Urine Occult Blood NEG Urine Nitrite NEG Urine Bilirubin NEG Urine Urobilinogen 4.0 MG/DL Urine Leukocyte Esterase SMALL Urine RBC 1 /hpf Urine WBC 1 /hpf Urine Squamous Epithelial Cells 1 /hpf Urine Amorphous Sediment RARE Urine Bacteria MANY /hpf Urine Mucus FEW /lpf Microscopic Urinalysis Comment CULTURE INDICATED White Blood Count 6.7 TH/MM3 4.9 TH/MM3 Red Blood Count 4.09 MIL/MM3 3.51 MIL/MM3 Hemoglobin 14.3 GM/DL 12.2 GM/DL Hematocrit 41.0 % 35.4 % Mean Corpuscular Volume 100.2 FL 100.9 FL Mean Corpuscular Hemoglobin 34.8 PG 34.8 PG Mean Corpuscular Hemoglobin Concent 34.8 % 34.5 % Red Cell Distribution Width 14.6 % 14.7 % Platelet Count 194 TH/MM3 151 TH/MM3 Mean Platelet Volume 9.1 FL 9.2 FL Neutrophils (%) (Auto) 77.9 % 64.3 % Lymphocytes (%) (Auto) 15.3 % 27.1 % Monocytes (%) (Auto) 6.4 % 7.7 % Eosinophils (%) (Auto) 0.0 % 0.5 % Basophils (%) (Auto) 0.4 % 0.4 % Neutrophils # (Auto) 5.2 TH/MM3 3.2 TH/MM3 Lymphocytes # (Auto) 1.0 TH/MM3 1.3 TH/MM3 Monocytes # (Auto) 0.4 TH/MM3 0.4 TH/MM3 Eosinophils # (Auto) 0.0 TH/MM3 0.0 TH/MM3 Basophils # (Auto) 0.0 TH/MM3 0.0 TH/MM3 CBC Comment DIFF FINAL DIFF FINAL Differential Comment Prothrombin Time 11.7 SEC Prothromb Time International Ratio 1.2 RATIO Activated Partial Thromboplast Time 29.4 SEC Blood Urea Nitrogen 4 MG/DL 4 MG/DL Creatinine 0.24 MG/DL 0.18 MG/DL Random Glucose 87 MG/DL 69 MG/DL Total Protein 5.7 GM/DL 4.3 GM/DL Albumin 1.6 GM/DL Calcium Level 7.3 MG/DL 7.3 MG/DL Magnesium Level 1.5 MG/DL Alkaline Phosphatase 108 U/L Aspartate Amino Transf (AST/SGOT) 54 U/L Alanine Aminotransferase (ALT/SGPT) 36 U/L Total Bilirubin 0.5 MG/DL Sodium Level 131 MEQ/L 136 MEQ/L Potassium Level 4.1 MEQ/L 3.4 MEQ/L Chloride Level 98 MEQ/L 106 MEQ/L Carbon Dioxide Level 16.0 MEQ/L 16.0 MEQ/L Anion Gap 17 MEQ/L 14 MEQ/L Estimat Glomerular Filtration Rate 290 ML/MIN 404 ML/MIN Protein Corrected Calcium 8.1 MG/DL 8.9 MG/DL Total Creatine Kinase 454 U/L Creatine Kinase MB 6.5 NG/ML Creatine Kinase MB % 1.4 % Troponin I LESS THAN 0.02 NG/ML Ethyl Alcohol Level LESS THAN 3 MG/DL Date/Time Source Procedure Growth Status 02/03/17 16:55 Urine Random Urine Urine Culture Pending Received Physical Examination GENERAL: emaciated HEENT: PERRL; normocephalic; atraumatic; no jaundice. CHEST: rhonchi, shallow respiration CARDIAC: RRR ABDOMEN: Soft, nondistended, nontender; no hepatosplenomegaly; bowel sounds are present in all four quadrants. EXTREMITIES: No clubbing, cyanosis, or edema. SKIN: Normal; no rash; no jaundice. SECURITY TECH: No focal deficits; alert and oriented times three. (Marlee Acuña) Assessment and Plan Plan ASSESSMENT - dysphagia - bolus sensation, regurgitation, worse with solids. hx stricture, esophagitis. EGD & dilatation 06/2015. did d/w pt possiblity of PEG tube placement during EGD but she declines at this time. per EMR plan is to d/c her to a facility as she cannot take care of herself - weakness, poor nutrition status PLAN - EGD with poss dilatation tomorrow - obtain consent - NPO after midnight - consider adding boost or ensure - further recs to follow This pt seen by myself and Dr Sood and this note is written on his behalf (Marlee Acuña) Physician Comments Patient seen and examined Agree with above Continue with current supportive care Monitor labs Patient with complaints of dysphagia, globus sensation, with noted malnutrition Patient declining PEG tube at this point EGD tomorrow with possible dilation Nutritional support with nutritional supplements Agree with nurse assisted facility post discharge (Star Sood MD) Marlee Acuña Feb 04, 2017 09:32 Star Sood MD Feb 04, 2017 17:35
[2017-02-04] MEDS: THIAMINE HCL 100 MG TAB PO SCH (11:13)
[2017-02-04] MEDS: MULTIVITAMINS/MINERALS THERAPEUTIC TAB PO SCH (11:13)
[2017-02-04] MEDS: SODIUM CHLORIDE 0.9% FLUSH 10 ML FLUSH IV FLUSH SCH ×2 (11:14→22:26)
[2017-02-04] MEDS: FOLIC ACID 1 MG TAB PO SCH (11:14)
--- NOTE | 2017-02-04 15:03 | HHI.PR ---
Subjective Remarks Very cachectic 66 years old female resting in bed She is afebrile, complained of pain in her feet, no chest pain or short of breath Objective Vitals Vital Signs Date Time Temp Pulse Resp B/P (MAP) Pulse Ox O2 Delivery O2 Flow Rate FiO2 02/04/17 13:02 98.2 67 18 116/71 (86) 96 02/04/17 12:00 98.3 107 17 112/68 (83) 94 02/04/17 08:00 98.1 105 16 116/75 (89) 97 02/04/17 03:04 98.1 98 17 101/57 (72) 97 02/03/17 21:57 98.0 97 17 98/63 (75) 97 02/03/17 21:31 02/03/17 19:28 98 18 100/69 (79) 98 02/03/17 17:15 105 18 100/69 (79) 99 Room Air 02/03/17 16:21 97.4 114 16 110/58 (75) 99 I/O 02/03/17 02/03/17 02/03/17 02/04/17 02/04/17 02/04/17 07:00 15:00 23:00 07:00 15:00 23:00 Intake Total 1000 ml Balance 1000 ml Intake IV Total 1000 ml Result Diagram: 02/04/17 0558 02/04/17 0558 Imaging Last Impressions Head CT 02/03/171707 Signed Impressions: Service Date/Time: Friday, February 03, 2017 17:46 - CONCLUSION: 1. Cerebral and cerebellar atrophy out of proportion to age. 2. Redemonstration of widespread white matter demyelination. 3. No acute intracranial amount. Edin Whittaker MD Chest X-Ray 02/03/171707 Signed Impressions: Service Date/Time: Friday, February 03, 2017 17:52 - CONCLUSION: 1. No active disease. No effusion or pneumothorax. Rudi Plunkett MD Cervical Spine CT 02/03/171707 Signed Impressions: Service Date/Time: Friday, February 03, 2017 17:46 - CONCLUSION: 1. No acute findings. Stable degenerative changes compared with 2016. Rudi Plunkett MD Objective Remarks GENERAL: This is very cachectic 66 years old female, frail with poor personal hygiene, resting comfortably in bed SKIN: No rashes, warm and dry HEAD: Atraumatic. Normocephalic. EYES: Pupils equal round and reactive. Extraocular motions intact. No scleral icterus. ENT: Nose without bleeding, or drainage, Airway patent. NECK: Trachea midline. Supple CARDIOVASCULAR: Regular rate and rhythm without murmurs, gallops, or rubs. RESPIRATORY: Fair air entry bilaterally. No wheezes, rales, or rhonchi. GASTROINTESTINAL: Abdomen soft, non-tender, nondistended. Positive bowel sounds MUSCULOSKELETAL: Extremities without clubbing, cyanosis, or edema. Pedal pulses appreciated NEUROLOGICAL: Awake and alert. Moves all extremity. Normal speech.no focal neurological deficit A/P Assessment and Plan 1. Failure to thrive with progressive weakness and dysphagia Head CT with cerebellar and cerebral atrophy out of proportion to age and widespread white matter demyelination, patient without lateralizing deficits Concern for esophageal stricture given dysphasia, GI consulted appreciated their input, and for EGD with dilatation in a.m. PT OT eval patient most likely will need rehabilitation placement Malnutrition with Albumin 1.6 Regular diet with ensure supplementation once patient able to tolerate by mouth Consult catering sous chef 2. Alcohol/tobacco abuse Cessation counseling provided Folate/thiamine/multivitamins [facility] protocol Jose Medrano MD Feb 04, 2017 15:03
[2017-02-04] MEDS ORDERED: SODIUM CHLOR 0.9% 250 ML INJ 250 ML IV ONE (16:15)
--- NOTE | 2017-02-04 16:46 | EKG ---
Date Performed: 02/03/2017 Time Performed: 18:43:28 PTAGE: 66 years EKG: Sinus rhythm WITH OCCASIONAL VENTRICULAR PREMATURE COMPLEXES BORDERLINE ECG PREVIOUS TRACING : 07/05/2015 18.48 Since the prior tracing, the ectopic atrial rhythm has reso lved, and the present rhythm is probably sinus rhythm, but because of the artifact, that cannot be st ated with certainty. The PVCs are new. The tracings are difficult to compare directly because of the poor quality of the present tracing. DOCTOR: Margie Hawkins Interpretating Date/Time 02/04/2017 16:46:16
[2017-02-04] MEDS ORDERED: INSULIN HUMAN REGULAR 1,000 UNITS/10 ML VIAL SQ PRN (18:00)
[2017-02-04] MEDS ORDERED: METOPROLOL TARTRATE 25 MG TAB PO PRN (18:00)
[2017-02-04] MEDS ORDERED: CHLORHEXIDINE GLUCONATE 2 % 1 PACK (2 CLOTHS) TOPICAL PRN (18:00)
[2017-02-04] MEDS ORDERED: LACTATED RINGER'S 1000 ML IV PRN (18:00)
[2017-02-04] MEDS ORDERED: SODIUM CHLORID 0.9% 500 ML IV PRN (18:00)
[2017-02-04] MEDS ORDERED: POVIDONE IODINE 5% (ANTISEPSIS KIT) 4 APPLICATIONS EACH NARE PRN (18:00)
[2017-02-04] MEDS ORDERED: DEXT 5%-NACL 0.45% 500 ML INJ 500 ML IV ONE (21:00)
[2017-02-04] MEDS ORDERED: SODIUM CHLOR 0.9% 1000 ML INJ 1,000 ML IV SCH (21:00)
[2017-02-05] VITALS (9 sets, daily range): BP systolic 92–121; BP diastolic 55–69; PULSE 64–100; RESP 15–28; TEMP 97.9–98.9; O2SAT 88–99
[2017-02-05] MEDS: MULTIVITAMINS/MINERALS THERAPEUTIC TAB PO SCH (09:00)
[2017-02-05] MEDS: THIAMINE HCL 100 MG TAB PO SCH (09:00)
[2017-02-05] MEDS: SODIUM CHLORIDE 0.9% FLUSH 10 ML FLUSH IV FLUSH SCH ×2 (09:00→20:31)
[2017-02-05] MEDS: FOLIC ACID 1 MG TAB PO SCH (09:00)
--- NOTE | 2017-02-05 11:45 | HHI.GIFU ---
Subjective Remarks EGD performed with balloon dilatation of stricture at GE junction. Balloon inflated to 13.5, 14.5 and 15.5 mm. small mucosal rent present. Esophagitis present and biopsies performed. Hiatal hernia present. Gastritis present and biopsy performed in antrum. duodenitis present. Objective Vitals I&O Vital Signs Date Time Temp Pulse Resp B/P (MAP) Pulse Ox O2 Delivery O2 Flow Rate FiO2 02/05/17 07:20 98.3 99 16 95/57 (70) 96 02/05/17 03:39 98.9 100 18 92/58 (69) 98 02/05/17 00:02 97.9 99 15 92/55 (67) 95 02/04/17 20:18 98.0 101 15 93/51 (65) 93 02/04/17 18:09 102/52 (69) 02/04/17 15:48 92/52 (65) 02/04/17 15:33 98.0 98 15 88/53 (65) 91 02/04/17 13:02 98.2 67 18 116/71 (86) 96 02/04/17 12:00 98.3 107 17 112/68 (83) 94 I/O 02/04/17 02/04/17 02/04/17 02/05/17 02/05/17 02/05/17 07:00 15:00 23:00 07:00 15:00 23:00 Intake Total 200 ml 200 ml Balance 200 ml 200 ml Intake Oral 200 ml Other 200 ml Laboratory Date/Time Source Procedure Growth Status 02/03/17 16:55 Urine Random Urine Urine Culture - Final Viridans Streptococcus Grp Complete Physical Exam HEENT: Pupils round and reactive to light; normocephalic; atraumatic; no jaundice. Throat is clear. NECK: Neck is supple, no JVD, no lymphadenopathy. CHEST: Chest is clear to auscultation and percussion. CARDIAC: Regular rate and rhythm with no murmur gallop or rubs. ABDOMEN: Soft, nondistended, nontender; no hepatosplenomegaly; bowel sounds are present in all four quadrants. EXTREMITIES: No clubbing, cyanosis, or edema. SKIN: Normal; no rash; no jaundice. DISTRIBUTION SUPERINTENDENT: No focal deficits; alert and oriented times three. Assessment and Plan Plan ASSESSMENT - dysphagia - bolus sensation, regurgitation, worse with solids. hx stricture, esophagitis. EGD & dilatation 06/2015. did d/w pt possiblity of PEG tube placement during EGD but she declines at this time. per EMR plan is to d/c her to a facility as she cannot take care of herself - weakness, poor nutrition status EGD with dilatation and biopsy performed on 02/05 Distal stricture in esophagus with severe esophagitis consistent with reflux. Gastritis. Biopsy taken. PLAN - Full liquid diet - consider adding boost or ensure - further recs to follow - PPI BID for one week then daily. - Repeat EGD with dilatation in 2 weeks. Sunny Heard MD Feb 05, 2017 11:45
[2017-02-05] MEDS ORDERED: DO NOT ADM ANY ANTICOAGULANT DRUGS PRN (11:47)
[2017-02-05] MEDS ORDERED: *RESP: ALBUTEROL 2.5 MG/3 ML NEB (PRN) PERIprocedural Use ONLY NEB ONE (11:55)
--- NOTE | 2017-02-05 11:56 | PD.CONS ---
Consult Service Palliative Care . Consult Requested By Dr. Medrano . Primary Care Physician No Primary Care Physician . Reason for Consultation a. To assist with evaluation and management of symptoms including: debility , dysphagia b. To assist medical decision maker(s) with: better understanding of current medical conditions; weighing benefits/burdens of medical treatment options; making medical treatment decisions. . (Daina Jha) HPI History of Present Illness Ms. Santillan is a 66 year old female with past medical history significant for unspecified esophageal disease status post which she believes to be esophageal dilation many years ago. Patient presented to [facility] ED on 02/03/2017 for evaluation of weakness and inability to get out of bed for an unknown time. Patient reports multiple falls over the past month. She endorsed new onset dysphasia stating she had been unable to tolerate solid foods for approximately 3 weeks. She reported anterior chest wall pain that she associates with a fall at which time she hit her chest against a wheelchair. Pain was described as moderately severe, nonradiating. Additional diagnostic data: * Pulse: 114, respirations 16, BP 110/58, oxygen saturation 99% on room air, tympanic temperature 97.4 * WBC: X.7, hemoglobin 0.3, hematocrit 41.0, platelet 194, neutrophils 77.9% * Sodium: 131, potassium 4.1, chloride 98, carbon dioxide 16.0, glucose 87, calcium 7.3, magnesium 1.5 * BUN: 4, creatinine 0.24, GFR 290 * Total bilirubin: 0.5, AST 54, ALT 36, alkaline phosphatase 108 * Total creatine kinase: 454 * CK-MB: 6.5 * Troponin: <0.02 * Total protein: 5.7, albumin 1.6 * Ethyl alcohol: negative * Urine culture growing Viridans Streptococcus * Head CT with cerebellar and cerebral atrophy out of proportion to age and widespread white matter demyelination, patient without lateralizing deficits * Chest x-ray without active disease. No effusion or pneumothorax * CT cervical spine showed stable degenerative changes and comparison to 2016. No acute findings. * EKG shows sinus rhythm with occasional PVC, heart rate 92. Patient is unable to ambulate, admitted for generalized weakness. Gastroenterology evaluated the patient who stated she feels like food gets stuck in the sternal area causing her to vomit. She reported this happens primarily with solid food but sometimes liquids well. Per EMR, the patient had an EGD in 01/2015 with findings of LA class D esophagitis, possible candidiasis esophagus, tight GE junction and scope not passed through d/t bleeding and tearing of mucosa on contact. Patient had subsequent EGD in 06/[address] Dumont and dilatation of esophageal stricture, pathology was benign. Patient never followed up outpatient with GI. She has never had colonoscopy. Denies N/V , diarrhea, constipation, blood in stools, black tarry stools. She endorses expected weight loss. had EGD with dilatation and biopsy performed on 02/05/2017 which showed distal stricture in esophagus and severe esophagitis consistent with reflux. Gastritis. Pathology pending. Recommendations for liquid diet and consideration of supplements such as boost or ensure, PPI BID for one week then daily and repeat EGD with dilatation in 2 weeks. Palliative Care was consulted to assist with symptom management and to discuss with the family the benefits and burdens of her current illnesses and the options regarding future care. . Function/Cognitive Trajectory Patient has reported progressively increased weakness over the past month causing her to be primarily bedbound. Patient reports multiple falls over the past month. She endorsed new onset dysphasia stating she had been unable to tolerate solid foods for approximately 3 weeks. Further information pending conversation with patient and/or family. . (Daina Jha) History of Present Illness Patient seen and examined in medical ICU, room 507. Patient lethargic, oriented to self, place and situation. Patient endorsing pain to her chest-states it feels like heartburn and hiccups. Notified bedside RN of patient`s complaints. Patient is in atrial fibrillation, BP 114/59, RR24 and O2 saturation of 92% on 2L NC. Neosynephrine infusing at 80mcg/min.Laboratory workup status post EGD today revealing WBC 4.1, Hgb 9.1, Hct 25.8, plt count 110, sodium 133, potassium 2.8, BUN/Creat 2/less than 0.15, Calcium 6.3, Troponin 0.03. Addressed code status in the presence of bedside RN Carlito, explained CPR benefits and limitations. Patient stated that she would not want to be resuscitated or placed on a mechanical ventilation. Asked patient if she knows what would happen to her if we do not do CPR and place her on mechanical ventilation and she said that she knows she would . Patient has never completed advance directives. Patient would like to designate a friend of hers named Rachid, unfortunately she could not recall his last name but mentions that she has his contact information in her phone. She also mentioned that she lives on his property. Discussed case with Dr. Dumas who feels that patient is status post anaesthesia and changing her code status at this time may be too soon. Advised to readdress code status when patient is stable and after enough time status post anaesthesia. Patient currently on Phenylephrine infusion. (Ramos Collins) Review of Systems ROS Limitations: Other (Patient just arrived from PACU. She is lethargic and requesting to be left alone to rest. ) Constitutional: COMPLAINS OF: Weight loss, Generalized weakness Eyes: DENIES: Eye inflammation Ears, nose, mouth, throat: DENIES: Hearing loss, Nasal discharge Respiratory: COMPLAINS OF: Shortness of breath, DENIES: Cough Cardiovascular: DENIES: Lower Extremity Edema Gastrointestinal: COMPLAINS OF: Difficulty Swallowing, Dyspepsia or heartburn, DENIES: Black stools, Bloody stools, Diarrhea, Nausea, Vomiting blood Genitourinary: DENIES: Hematuria Integumentary: DENIES: Pruritus Other ROS: ROS obtained partially from patient, medical records and clinical observation. . (Ramos Collins) Past Family Social History Coded Allergies: No Known Allergies (Verified Allergy, Unknown, 02/03/17) Past Medical History Esophageal stricture EtOH abuse COPD Osteoarthritis Hyperlipidemia . Past Surgical History History of esophageal dilation Right ankle fracture-2008 . Reported Medications Active Prescriptions or Reported Medications Unobtainable . Current Medications Medications (Trade) Dose Ordered Sig/Rossy Route Start Time Stop Time Status Last Admin (NS Flush) 2 ml UNSCH PRN IV FLUSH 02/03/17 21:00 (NS Flush) 2 ml BID IV FLUSH 02/03/17 21:00 02/04/17 22:26 (Tylenol) 650 mg Q4H PRN PO 02/03/17 21:00 (Zofran Inj) 4 mg Q6H PRN IVP 02/03/17 21:00 02/04/17 13:00 (Narcan Inj) 0.4 mg UNSCH PRN IV PUSH 02/03/17 21:00 (Folate) 1 mg DAILY PO 02/04/17 09:00 02/09/17 08:59 02/04/17 11:14 (Vitamin B1) 100 mg DAILY PO 02/04/17 09:00 02/04/17 11:13 (Theragran M Tab) 1 tab DAILY PO 02/04/17 09:00 02/09/17 08:59 02/04/17 11:13 (Romazicon Inj) 0.2 mg Q1M PRN IV PUSH 02/03/17 21:00 (Ativan) 1 mg Q4H PRN PO 02/03/17 21:00 (Ativan) 2 mg Q2H PRN PO 02/03/17 21:00 (Duoneb Neb) 1 ampule Q4HR NEB PRN NEB 02/03/17 20:45 Lactated Ringer's 1,000 ml @ 30 mls/hr Q24H PRN IV 02/04/17 18:00 02/07/17 17:59 Sodium Chloride 500 ml @ 30 mls/hr [id number] PRN IV 02/04/17 18:00 02/07/17 17:59 (Lopressor) 25 mg TREE LOADER MEAT PRN PO 02/04/17 18:00 02/07/17 17:59 (Betadine 5% Antisepsis Kit) 1 applic TREE [employer]AT PRN EACH NARE 02/04/17 18:00 02/07/17 17:59 (Chlorhexidine 2% Cloth) 3 pack T[employer] PRN TOPICAL 02/04/17 18:00 02/07/17 17:59 (NovoLIN R INJ) See Protocol Table ... T[employer] LO[employer]AT PRN SQ 02/04/17 18:00 02/07/17 17:59 Sodium Chloride 1,000 ml @ 50 mls/hr Q20H IV 02/04/17 21:00 02/04/17 22:25 . Family History Mother with a history of breast cancer. . Substance Use Tobacco: 25+ pack year smoking history Alcohol: History of EtOH abuse; patient reports she drinks one beer daily Prescription med abuse: Patient denies Illicits: Patient denies . Psychosocial History Per CM note, patient was staying at the [facility] following the of her and subsequent eviction from her section 8 housing. Case management spoke to Nina at the [facility] to inquire about possible placement. Nina reported that the patient's (perhaps a "community ") is a volunteer at the [employer] and has told her that he and the patient were most recently living in a motel but they were evicted because the patient was smoking while using her oxygen and for nonpayment. Spiritual/Cultural Factors [employer] . (Daina Jha) Psychosocial History Patient was born in [facility] and states that she has lived in many states. 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 She was once and her 2 years ago. Patient states that she never had children. Per patient, her mother is still living and has Alzheimers disease. (Ramos Collins) Living Will: Never completed Health Care Surrogate: Never completed Durable Power of Lumber Scaler: Never completed Health Care Surrogate(s): Patient stated that she wants a friend of hers by the name Rachid to serve as her health care surrogate. Unfortunately she could not remember his last name but she said that she has his contact number in her cellphone. She also mentioned that she currently lives on his property. . (Ramos Collins) Physical Exam Vital Signs Date Time Temp Pulse Resp B/P (MAP) Pulse Ox O2 Delivery O2 Flow Rate FiO2 02/05/17 07:20 98.3 99 16 95/57 (70) 96 02/05/17 03:39 98.9 100 18 92/58 (69) 98 02/05/17 00:02 97.9 99 15 92/55 (67) 95 02/04/17 20:18 98.0 101 15 93/51 (65) 93 02/04/17 18:09 102/52 (69) 02/04/17 15:48 92/52 (65) 02/04/17 15:33 98.0 98 15 88/53 (65) 91 02/04/17 13:02 98.2 67 18 116/71 (86) 96 02/04/17 12:00 98.3 107 17 112/68 (83) 94 . 02/05/17 02/06/17 19:00 07:00 Intake Total 200 ml Balance 200 ml Other 200 ml . (Daina Jha) Exam CONSTITUTIONAL/GENERAL: This is a cachectic,frail ill-looking patient who looks older than stated age. TUBES/LINES/DRAINS: PIV,NC SKIN: No jaundice, or lesions. Ecchymoses on upper extremities. No wounds seen anteriorly. Cool and dry. Not diaphoretic. HEAD: Atraumatic. Normocephalic. EYES: Pupils equal and round and reactive. Extraocular motions intact. No scleral icterus. No injection or drainage. Fundi not examined. ENT: Hearing grossly normal. Nose without bleeding or purulent drainage. Moist oral mucosa. NECK: Trachea midline. Supple, nontender. CARDIOVASCULAR: Controlled A trial fibrillation. No JVD. Peripheral pulses symmetric. Complaining of chest discomfort RESPIRATORY/CHEST: Symmetric, unlabored respirations. Clear to auscultation. Shallow respirations.No wheezes, rales, or rhonchi. GASTROINTESTINAL: Abdomen soft, non-tender, nondistended. No guarding. No bowel sounds. C/o heartburn and hiccups. GENITOURINARY: Without palpable bladder distension. MUSCULOSKELETAL: Extremities without clubbing, cyanosis, or edema. No joint tenderness or effusion noted. No calf tenderness. No mottling or clubbing. NEUROLOGICAL: Awake and lethargic and oriented to self, place and time. Motor and sensory grossly within normal limits. Follows commands. Moves all extremities. PSYCHIATRIC: No obvious anxiety/depression. no apparent hallucinations or other psychotic thought process. . (Ramos Collins) Diagnostic Tests Laboratory Laboratory Tests Test 02/03/17 16:55 02/03/17 18:05 02/04/17 05:58 Urine Color YELLOW (YELLW/STRAW) Urine Turbidity HAZY (CLEAR) Urine pH 6.0 (5.0-8.5) Urine Specific [place] 1.017 (1.002-1.035) Urine Protein 30 mg/dL (NEG-TRACE) Urine Glucose (UA) NEG mg/dL (NEG) Urine Ketones 150 mg/dL (NEG) Urine Occult Blood NEG (NEG) Urine Nitrite NEG (NEG) Urine Bilirubin NEG (NEG) Urine Urobilinogen 4.0 MG/DL (LESS THAN Urine Leukocyte Esterase SMALL (NEG) Urine RBC 1 /hpf (0-3) Urine WBC 1 /hpf (0-5) Urine Squamous Epithelial Cells 1 /hpf (0-5) Urine Amorphous Sediment RARE Urine Bacteria MANY /hpf (NONE) Urine Mucus FEW /lpf (OCC) Microscopic Urinalysis Comment CULTURE INDICATED White Blood Count 6.7 TH/MM3 (4.0-11.0) 4.9 TH/MM3 (4.0-11.0) Red Blood Count 4.09 MIL/MM3 (4.00-5.30) 3.51 MIL/MM3 (4.00-5.30) Hemoglobin 14.3 GM/DL (11.6-15.3) 12.2 GM/DL (11.6-15.3) Hematocrit 41.0 % (35.0-46.0) 35.4 % (35.0-46.0) Mean Corpuscular Volume 100.2 FL (80.0-100.0) 100.9 FL (80.0-100.0) Mean Corpuscular Hemoglobin 34.8 PG (27.0-34.0) 34.8 PG (27.0-34.0) Mean Corpuscular Hemoglobin Concent 34.8 % (32.0-36.0) 34.5 % (32.0-36.0) Red Cell Distribution Width 14.6 % (11.6-17.2) 14.7 % (11.6-17.2) Platelet Count 194 TH/MM3 (150-450) 151 TH/MM3 (150-450) Mean Platelet Volume 9.1 FL (7.0-11.0) 9.2 FL (7.0-11.0) Neutrophils (%) (Auto) 77.9 % (16.0-70.0) 64.3 % (16.0-70.0) Lymphocytes (%) (Auto) 15.3 % (9.0-44.0) 27.1 % (9.0-44.0) Monocytes (%) (Auto) 6.4 % (0.0-8.0) 7.7 % (0.0-8.0) Eosinophils (%) (Auto) 0.0 % (0.0-4.0) 0.5 % (0.0-4.0) Basophils (%) (Auto) 0.4 % (0.0-2.0) 0.4 % (0.0-2.0) Neutrophils # (Auto) 5.2 TH/MM3 (1.8-7.7) 3.2 TH/MM3 (1.8-7.7) Lymphocytes # (Auto) 1.0 TH/MM3 (1.0-4.8) 1.3 TH/MM3 (1.0-4.8) Monocytes # (Auto) 0.4 TH/MM3 (0-0.9) 0.4 TH/MM3 (0-0.9) Eosinophils # (Auto) 0.0 TH/MM3 (0-0.4) 0.0 TH/MM3 (0-0.4) Basophils # (Auto) 0.0 TH/MM3 (0-0.2) 0.0 TH/MM3 (0-0.2) CBC Comment DIFF FINAL DIFF FINAL Differential Comment Prothrombin Time 11.7 SEC (9.8-11.6) Prothromb Time International Ratio 1.2 RATIO Activated Partial Thromboplast Time 29.4 SEC (24.3-30.1) Blood Urea Nitrogen 4 MG/DL (7-18) 4 MG/DL (7-18) Creatinine 0.24 MG/DL (0.50-1.00) 0.18 MG/DL (0.50-1.00) Random Glucose 87 MG/DL (74-106) 69 MG/DL (74-106) Total Protein 5.7 GM/DL (6.4-8.2) 4.3 GM/DL (6.4-8.2) Albumin 1.6 GM/DL (3.4-5.0) Calcium Level 7.3 MG/DL (8.5-10.1) 7.3 MG/DL (8.5-10.1) Magnesium Level 1.5 MG/DL (1.5-2.5) Alkaline Phosphatase 108 U/L (45-117) Aspartate Amino Transf (AST/SGOT) 54 U/L (15-37) Alanine Aminotransferase (ALT/SGPT) 36 U/L (10-53) Total Bilirubin 0.5 MG/DL (0.2-1.0) Sodium Level 131 MEQ/L (136-145) 136 MEQ/L (136-145) Potassium Level 4.1 MEQ/L (3.5-5.1) 3.4 MEQ/L (3.5-5.1) Chloride Level 98 MEQ/L (98-107) 106 MEQ/L (98-107) Carbon Dioxide Level 16.0 MEQ/L (21.0-32.0) 16.0 MEQ/L (21.0-32.0) Anion Gap 17 MEQ/L (5-15) 14 MEQ/L (5-15) Estimat Glomerular Filtration Rate 290 ML/MIN (>89) 404 ML/MIN (>89) Protein Corrected Calcium 8.1 MG/DL (8.5-10.1) 8.9 MG/DL (8.5-10.1) Total Creatine Kinase 454 U/L (26-192) Creatine Kinase MB 6.5 NG/ML (0.5-3.6) Creatine Kinase MB % 1.4 % (0.0-4.0) Troponin I LESS THAN 0.02 NG/ML Ethyl Alcohol Level LESS THAN 3 MG/DL (0-5) . (Daina Jha) Result Diagram: 02/04/17 0558 02/04/17 0558 Microbiology Microbiology Date/Time Source Procedure Growth Status 02/03/17 16:55 Urine Random Urine Urine Culture - Final Viridans Streptococcus Grp Complete . Imaging Last [address] 02/03/171707 Signed Impressions: Service Date/Time: Friday, February 03, 2017 17:46 - CONCLUSION: 1. Cerebral and cerebellar atrophy out of proportion to age. 2. Redemonstration of widespread white matter demyelination. 3. No acute intracranial amount. Edin Whittaker MD Chest X-Ray 02/03/171707 Signed Impressions: Service Date/Time: Friday, February 03, 2017 17:52 - CONCLUSION: 1. No active disease. No effusion or pneumothorax. Rudi Plunkett MD Cervical Spine CT 02/03/171707 Signed Impressions: Service Date/Time: Friday, February 03, 2017 17:46 - CONCLUSION: 1. No acute findings. Stable degenerative changes compared with 2016. Rudi Plunkett MD . Procedures 02/05/2017: EGD . (Daina Jha) Patient/Family Conference Family Conference Location: Bedside Issues Discussed: Palliative care role, purpose, approach Brief psychosocial, and spiritual history Palliative care contact information provided (Ramos Collins) Assessment and Plan Important Contacts Chantel Kaur, mother: [phone] Patient was at one time, possible to someone named Memo [phone] . Code Status: Full Code Plan * FULL CODE * Attempted to contact patient's mother (Chantel Kaur) via telephone. A msgEdgar was left on her voice mail with palliative care contact information; awaiting return phone call. (Daina Jha) Disease Oriented Problem List: (1) Malnutrition (2) Esophagitis (3) Esophageal stricture (4) Hypokalemia (5) Generalized weakness Symptom Scale: (1) Dysphagia 0-10 Scale: Unable to quantify (2) Debility 0-10 Scale: Unable to quantify Prognosis Ms. Santillan is a 66 year old female with past medical history significant for unspecified esophageal disease status post which she believes to be esophageal dilation many years ago. Patient presented to [facility] ED on 02/03/2017 for evaluation of weakness and inability to get out of bed for an unknown time. Patient has had multiple falls and has not be able to eat food due to dysphagia associated with bolus sensation, regurgitation for approximately 3 weeks. Patient underwent EGD with balloon dilatation or stricture at the GE junction on 02/05/17. Prognosis is guarded. Code Status: Full Code Plan PLAN: Legal decision maker: Patient currently is able to make her own medical decisions. In the event that the patient is incapacitated, patient states that she would like to designated friend of his named Rachid to be a healthcare surrogate. Goals: Aggressive. Will need to be readdressed when patient is stable and has had considerable time status post anesthesia. CODE STATUS: Full code Addressed code status in the presence of bedside RN Carlito, explained CPR benefits and limitations. Patient stated that she would not want to be resuscitated or placed on a mechanical ventilation. Asked patient if she knows what would happen to her if we do not do CPR and place her on mechanical ventilation and she said that she knows she would . Patient has never completed advance directives. Patient would like to designate a friend of hers named Rachid, unfortunately she could not recall his last name but mentions that she has his contact information in her phone. She also mentioned that she lives on his property. Discussed case with Dr. Dumas who feels that patient is status post anaesthesia and changing her code status at this time may be too soon. Advised to readdress code status when patient is stable and after enough time status post anaesthesia SYMPTOMS: * Dysphagia: History of severe esophagitis, tight GE junction. Presented in the ER after 3 weeks of having dysphagia, bolus sensation, regurgitation worse with solids and weight loss. Patient underwent EGD with balloon dilatation or stricture at the GE junction today. 02/05/17 total protein 5.7, albumin 1.6. Recommending speech therapy evaluation and dietitian consultation. * Debility: Patient came in complaining of generalized weakness for approximately a month and inability to ambulate without falling. Reported last fall was on 01/31/17. Patient presented in ER soaked and covered with urine and stool and unable to transfer herself from wheelchair to bed. Physical therapy following patient, and patient requiring maximum assistance with transfer is and unable to ambulate. PT recommending PT at rehabilitation. Palliative care will continue to follow the patient during hospital course as condition evolves, to assist patient/decision-maker with understanding of their medical conditions, weighing benefits/burdens of treatment options, for clarification of goals of treatment. Additionally will assist with any symptoms of palliative concern (Ramos Collins) Thank you for the opportunity to participate in the care of Ms. Santillan. (Daina Jha) Collaborating MD Comments To help prompt me to consider important information that might be impacting today's encounter and assessment, information from prior notes written by myself or my colleagues may have been "brought forward" into today's note. My signature on this note, however, is an attestation that I personally performed the exam, history, and/or decision-making noted today, and, unless otherwise indicated, the interactions with patient, family, and staff as well as the review of records all occurred today. I also attest that the listed assessment and stated plan reflect my best clinical judgment today based on the combination of historical information, prior notes, and today's exam/ interactions. When time spent is documented, it refers only to time spent today by the signer, or if indicated, combined time spent today by collaborating physician/nurse practitioner. (Ramos Collins) Daina Jha Feb 05, 2017 11:56 Ramos Collins Feb 05, 2017 20:09
[2017-02-05] MEDS ORDERED: ONDANSETRON HCL 4 MG/2 ML VIAL IV ONE (12:00)
[2017-02-05] MEDS ORDERED: PROPOFOL 200 MG/20 ML AMP IV ONE (12:00)
[2017-02-05] MEDS ORDERED: ROCURONIUM INJ 50 MG/5 ML SYRINGE IV PUSH ONE (12:00)
[2017-02-05] MEDS ORDERED: LIDOCAINE HCL 1% PF 5 ML SYRINGE OTHER ONE (12:00)
[2017-02-05] MEDS ORDERED: ePHEDrine/NS 25 MG/5 ML SYRINGE IV ONE (12:00)
[2017-02-05] MEDS ORDERED: PANTOPRAZOLE INJ 80 MG in SODIUM CHLORIDE 0.9% INJ 100 ML IV SCH (12:00)
[2017-02-05] MEDS ORDERED: SUCCINYLCHOLINE CHLORIDE 100 MG/5 ML SYRINGE IV PUSH ONE (12:00)
[2017-02-05] MEDS ORDERED: PANTOPRAZOLE INJ 80 MG in SODIUM CHLORIDE 0.9% INJ 35 ML IV ONE (12:00)
[2017-02-05] MEDS ORDERED: LACTATED RINGER'S 1000 ML INJ 1,000 ML IV ONE (13:00)
[2017-02-05] MEDS ORDERED: PHENYLEPH/NS 1000 MCG/10 ML SYR ONE (13:16)
[2017-02-05] MEDS ORDERED: PHENYLEPH/NS 1000 MCG/10 ML SYR IV PUSH ONE (13:45)
[2017-02-05] MEDS ORDERED: HETASTARCH 6%/LACTAT LYTES INJ 500 ML ONE (13:46)
[2017-02-05] MEDS ORDERED: HETASTARCH 6%/LACTAT LYTES INJ 500 ML IV ONE (14:15)
[2017-02-05] MEDS ORDERED: PHENYLEPHRINE HCL 10 MG/ML VIAL ONE (15:20)
[2017-02-05] MEDS ORDERED: TERBUTALINE INJ 1 MG/ML AMP SQ PRN (15:25)
[2017-02-05] MEDS: PHENYLEPHRINE 40 MG in D5W 500 ML IV PRN (15:30)
[2017-02-05] MEDS ORDERED: ALBUMIN 5% INJ 250 ML IV ONE (15:45)
[2017-02-05] MEDS ORDERED: ALBUMIN 5% INJ 500 ML IV ONE (15:45)
[2017-02-05 15:57] LABS: AUTOMATED NEUTROPHIL # 2.1 TH/MM3 (1.8-7.7); BASOPHIL % 0.6 % (0.0-2.0); EOSINOPHIL % 0.4 % (0.0-4.0); HEMATOCRIT 23.6 % (35.0-46.0); LYMPH % 28.8 % (9.0-44.0); MEAN CELL VOLUME 98.6 FL (80.0-100.0); MEAN CORPUSCULAR HGB CONC 34.5 % (32.0-36.0); NEUT % 62.2 % (16.0-70.0); PLATELET COUNT 96 TH/MM3 (150-450); RED BLOOD COUNT 2.39 MIL/MM3 (4.00-5.30); RED CELL DISTRIBUTION WIDTH 14.7 % (11.6-17.2); WHITE BLOOD COUNT 3.4 TH/MM3 (4.0-11.0)
[2017-02-05 15:58] LABS: HEMO FLAGS AUTO DIFF
[2017-02-05] MEDS ORDERED: POTASSIUM CHLOR 20 MEQ PREMIX 100 ML IV PRN ×2 (16:30)
[2017-02-05] MEDS ORDERED: MAGNESIUM SULFATE INJ 2 GM in SODIUM CHLORIDE 0.9% INJ 96 ML IV PRN (16:30)
[2017-02-05] MEDS ORDERED: POTASSIUM PHOSPHATE MONOBASIC 500 MG TAB PO PRN (16:30)
[2017-02-05] MEDS ORDERED: MAGNESIUM SULFATE INJ 4 GM in SODIUM CHLORIDE 0.9% INJ 92 ML IV PRN (16:30)
[2017-02-05] MEDS ORDERED: POTASSIUM PHOSPHATE MONOBASIC 500 MG TAB PO/TUBE PRN (16:30)
[2017-02-05] MEDS ORDERED: GLUCAGON 1 MG/ML VIAL OTHER PRN (16:30)
[2017-02-05] MEDS ORDERED: DEXT 5%-NACL 0.9% 1000 ML INJ 1,000 ML IV SCH (16:30)
[2017-02-05] MEDS ORDERED: POTASSIUM CHLOR 40 MEQ PREMIX 100 ML IV PRN ×2 (16:30)
[2017-02-05] MEDS ORDERED: POTASSIUM PHOSPHATE INJ 30 MMOL in SODIUM CHLOR 0.9% 250 ML INJ 250 ML IV PRN (16:30)
[2017-02-05] MEDS ORDERED: DEXTROSE 50% IN WATER 50 ML VIAL(D50) IV PUSH PRN (16:30)
[2017-02-05] MEDS ORDERED: MAGNESIUM OXIDE 400 MG TAB PO PRN (16:30)
[2017-02-05] MEDS ORDERED: POTASSIUM CHLORIDE 25 MEQ EFFERVESCENT TAB PO PRN (16:30)
[2017-02-05] MEDS ORDERED: SODIUM PHOSPHATE INJ 30 MMOL in SODIUM CHLOR 0.9% 250 ML INJ 240 ML IV PRN (16:30)
[2017-02-05 16:41] LABS: BANDS 5 % (0-6); BASOPHILS 1 % (0-2); NEUTROPHIL # MANUAL DIFF 2.7 TH/MM3 (1.8-7.7); PLATELET ESTIMATE SMEAR LOW (NORMAL); PLATELET MORPHOLOGY NORMAL (NORMAL); POLYS (SEG NEUTROPHILS) 75 % (16-70); SCAN/DIFF FINAL DIFF MANUAL; WBC DIFF SAMPLE 100
[2017-02-05 17:03] LABS: AUTOMATED NEUTROPHIL # 2.6 TH/MM3 (1.8-7.7); BASOPHIL % 0.9 % (0.0-2.0); EOSINOPHIL % 0.2 % (0.0-4.0); HEMATOCRIT 25.8 % (35.0-46.0); HEMO FLAGS DIFF FINAL; LYMPH % 28.8 % (9.0-44.0); LYMPHOCYTE # 1.2 TH/MM3 (1.0-4.8); MEAN CELL VOLUME 98.9 FL (80.0-100.0); MEAN CORPUSCULAR HEMOGLOBIN 34.8 PG (27.0-34.0); MEAN CORPUSCULAR HGB CONC 35.2 % (32.0-36.0); NEUT % 63.1 % (16.0-70.0); PLATELET COUNT 110 TH/MM3 (150-450); RED CELL DISTRIBUTION WIDTH 14.5 % (11.6-17.2); WHITE BLOOD COUNT 4.1 TH/MM3 (4.0-11.0)
[2017-02-05 17:19] LABS: ANION GAP 7 MEQ/L (5-15); BICARBONATE 23.3 MEQ/L (21.0-32.0); BLOOD UREA NITROGEN 2 MG/DL (7-18); CHLORIDE 103 MEQ/L (98-107); GLOMERULAR FILTRATION RATE 498 ML/MIN (>89); MAGNESIUM 1.2 MG/DL (1.5-2.5); SODIUM (NA) 133 MEQ/L (136-145)
--- NOTE | 2017-02-05 17:26 | EKG ---
Date Performed: 02/05/2017 Time Performed: 16:29:31 PTAGE: 66 years EKG: NORMAL Sinus rhythm WITH PACs LOW QRS VOLTAGE IN PRECORDIAL LEADS SEPTAL MYOCARDIAL INFARCTION , OF INDETERMINATE AGE NO NSPECIFIC ST/T ABNORMALITIES ABNORMAL ECG PREVIOUS TRACING : 02/03/2017 18.43 No significant change from previous tracing noted. DOCTOR: Dakotah Dyer Interpretating Date/Time 02/05/2017 17:25:12
--- NOTE | 2017-02-05 17:26 | MB ---
cc: CLIFFORD BURROUGHS DATE OF CONSULTATION 02/05/17 1952 HISTORY OF PRESENT ILLNESS The patient is 66-year-old female with history of esophageal stricture who was admitted to [facility] on February 03 under hospitalist service for progressive worsening generalized weakness, failure to thrive and dysphagia. She was evaluated by GI service and underwent EGD today. Her EEG was performed with balloon dilatation of stricture at the GE junction. In addition, gastritis, duodenitis, esophagitis and hiatal hernia were seen. Post endoscopy, the patient became hypotensive in the PACU and she received 1.5 liters of crystalloids in addition to 500 mL of Hespan. The patient was also started on Slade-Synephrine which is currently at 40 mcg with current blood pressure of 108/69. Her current saturation is 97% on 2 liters with a pulse of 82. She was also found in Afib. Patient is awake, alert, appears comfortable. She denies any chest pain, shortness of breath or any GI symptoms. PAST MEDICAL HISTORY Significant for esophagitis and esophageal stricture PAST SURGICAL HISTORY 1. Previous esophageal dilation 2. Ankle surgery. ALLERGIES NO KNOWN DRUG ALLERGIES. FAMILY HISTORY No history of coronary artery disease or diabetes mellitus. SOCIAL HISTORY The patient is an active smoker where she smokes a pack per day and drinks one beer daily. REVIEW OF SYSTEMS As per HPI. Rest of the review of system unremarkable. PHYSICAL EXAMINATION A 66-year old female lying in bed in no acute distress. VITAL SIGNS: Temperature of 98.9, pulse of 82, blood pressure 108/69, saturation 97% on 2 liters. HEENT: Atraumatic, normocephalic. Pupils equal, round, reactive to light and accommodation. Extraocular muscles intact. Conjunctivae pink. Nonicteric sclerae. Dry mucous membrane noted NECK: Supple. No JVD, adenopathy or thyromegaly. Trachea in the midline CARDIOVASCULAR: Irregularly irregular. Normal S1, S2. No murmurs, rubs or gallops noted. LUNGS: bilateral equal entry. No rales or wheezing. ABDOMEN: Soft, nontender, no distension. Positive bowel sounds. EXTREMITIES: No cyanosis, clubbing or edema. NEUROLOGIC: No focal sensory deficit. LABORATORY DATA From February 04 sodium 136, potassium 3.4, chloride 106, CO2 16, BUN four, lactic acid 0.18, glucose of 69. WBC 4.9, hemoglobin 12.2, hematocrit 35, platelet count of 151, INR 1.2, PT 11.7, PTT 29.4. Alcohol level less than three. Urinalysis showed small leukocyte esterase, many bacteria. IMAGING STUDIES CT brain on arrival showed cerebral and cerebellar atrophy, white matter demyelination, no acute intracranial findings noted. Chest x-ray showed no acute disease. Cervical spine CT was performed which showed no acute findings. IMPRESSION 1. Respiratory insufficiency. 2. Hypotension. 3. Dysphagia 4. Esophageal stricture status post balloon dilatation 5. Urinary tract infection. 6 . New onset Atrial fib 7. Generalized weakness and failure to thrive. 8 ETOH and tobacco abuse RECOMMENDATIONS 1. Monitor neuro status and avoid any sedatives. CT scan of the brain on arrival showed no acute intracranial findings. However, it showed widespread white matter demyelination. On Thiamine and Folic acid 2. Continue with oxygen, maintain sats above 92%. 3. Bronchodilators on a p.r.n. basis. 4. Continue with Slade-Synephrine, monitor heart rate and blood pressure closely and maintain MAP greater than 65 mmHg. She was given 1.5 liters of crystalloids in the post anesthesia care unit along with Hespan 500 mL. We will give an additional 1 liter bolus of normal saline. 5. Place on maintenance fluids D5 NS at 100. 6. Check lactic acid level. The patient was found in A. fib in the PACU. We will check 12-lead EKG. In addition, we will obtain cardiac enzymes with troponin and check 2D echo to evaluate LV function. 7. Monitor renal function, Is and Os and electrolyte replacement per protocol. IV fluids as stated above. 8. Keep n.p.o. for now and continue with a Protonix drip. She just underwent EGD with balloon dilatation of the stricture at the GE junction. Esophagitis, gastritis, duodenitis and hiatal hernia noted per report. 9. Place on antibiotics Levaquin for UTI and monitor for signs of infections which include fever and WBC. Monitor for signs of infections which include fever and WBC. Chest x-ray on arrival showed no acute disease. 10. Monitor CBC. 11. Sliding scale insulin with Accu-Cheks if needed. 12. GI prophylaxis. We will continue with a Protonix drip, DVT prophylaxis with SCDs. 13. We will obtain stat labs now which include CBC, BMP, mag, phos and cardiac enzymes. Further recommendations will be based on hospital course. MD BERNABE Arias/ /4:19 PM /5:00 PM DANIEL
[2017-02-05 17:28] LABS: CREATINE KINASE 96 U/L (26-192)
[2017-02-05 17:33] LABS: POTASSIUM 2.8 MEQ/L (3.5-5.1)
[2017-02-05 17:47] LABS: CALCIUM-PROTEIN CORRECTED 8.5 MG/DL (8.5-10.1)
[2017-02-05] MEDS ORDERED: SODIUM CHLORID 0.9% 500 ML INJ 500 ML IV ONE (18:00)
[2017-02-05] MEDS: INSULIN NovoLIN REGULAR SUPPLEMENTAL SCALE SQ SCH (20:30)
[2017-02-05] MEDS ORDERED: CHLORHEXIDINE GLUCONATE 2 % 1 PACK (2 CLOTHS)(extra cloths) TOPICAL PRN (20:30)
--- NOTE | 2017-02-05 22:14 | HHI.PR ---
Subjective Remarks Seen and examined earlier today, Patient resting in bed, looks very frail, poor historian, blood pressure sitting on the lower side Afebrile, patient going for GI scope today, may need to upgrade her level if continued to be hypotension Objective Vitals Vital Signs Date Time Temp Pulse Resp B/P (MAP) Pulse Ox O2 Delivery O2 Flow Rate FiO2 02/05/17 20:07 92 Nasal Cannula 2.00 02/05/17 20:03 100 111/69 02/05/17 20:00 98.1 100 28 96/55 (69) 88 02/05/17 18:26 98.3 90 24 115/69 (84) 96 02/05/17 18:00 98.0 97 16 106/66 (79) 96 02/05/17 17:50 99 Nasal Cannula 2.00 02/05/17 17:30 98.0 64 16 121/65 (83) 95 02/05/17 17:00 71 19 114/58 (76) 97 Nasal Cannula 2 02/05/17 16:45 81 19 98/60 (73) 97 Nasal Cannula 2 02/05/17 16:30 78 19 93/58 (70) 97 Nasal Cannula 2 02/05/17 16:15 98.5 79 19 93/56 (68) 97 Nasal Cannula 2 02/05/17 16:00 82 19 93/59 (70) 98 Nasal Cannula 2 02/05/17 15:45 80 19 108/69 (82) 98 Nasal Cannula 2 02/05/17 15:30 89 83/54 02/05/17 15:30 87 17 81/53 (62) 99 Nasal Cannula 2 02/05/17 15:15 Nasal Cannula 2 02/05/17 15:00 87 17 81/53 (62) 99 Nasal Cannula 2 02/05/17 14:45 94 17 88/57 (67) 99 Nasal Cannula 2 02/05/17 14:30 86 17 81/52 (62) 99 Nasal Cannula 2 02/05/17 14:15 83 17 83/56 (65) 98 Nasal Cannula 2 02/05/17 14:00 88 18 81/55 (64) 97 Nasal Cannula 2 02/05/17 13:45 88 18 76/51 (59) 94 Nasal Cannula 2 02/05/17 13:30 92 18 80/52 (61) 94 Nasal Cannula 2 02/05/17 13:15 97 18 92/60 (71) 97 Nasal Cannula 2 02/05/17 13:00 93 18 78/50 (59) 99 Nasal Cannula 2 02/05/17 12:45 89 18 83/50 (61) 99 Nasal Cannula 2 02/05/17 12:30 87 16 78/51 (60) 99 Nasal Cannula 2 02/05/17 12:15 90 16 89/55 (66) 99 02/05/17 12:00 90 16 110/55 (73) 98 02/05/17 11:55 85 16 111/70 (84) 99 Nasal Cannula 2 02/05/17 11:49 98.9 90 16 80/60 (67) 98 Nasal Cannula 2 02/05/17 07:20 98.3 99 16 95/57 (70) 96 02/05/17 03:39 98.9 100 18 92/58 (69) 98 02/05/17 00:02 97.9 99 15 92/55 (67) 95 I/O 02/04/17 02/04/17 02/04/17 02/05/17 02/05/17 02/05/17 07:00 15:00 23:00 07:00 15:00 23:00 Intake Total 200 ml 1200 ml 250 ml Output Total 1 ml Balance 200 ml 1199 ml 250 ml Intake Oral 200 ml IV Total 1000 ml 250 ml Other 200 ml Output Stool Total 1 ml # Voids 3 Result Diagram: 02/05/17 1645 02/05/17 1645 Objective Remarks GENERAL: This is very cachectic 66 years old female, frail with poor personal hygiene, resting comfortably in bed SKIN: No rashes, warm and dry HEAD: Atraumatic. Normocephalic. EYES: Pupils equal round and reactive. Extraocular motions intact. No scleral icterus. ENT: Nose without bleeding, or drainage, Airway patent. NECK: Trachea midline. Supple CARDIOVASCULAR: Regular rate and rhythm without murmurs, gallops, or rubs. RESPIRATORY: Fair air entry bilaterally. No wheezes, rales, or rhonchi. GASTROINTESTINAL: Abdomen soft, non-tender, nondistended. Positive bowel sounds MUSCULOSKELETAL: Extremities without clubbing, cyanosis, or edema. Pedal pulses appreciated NEUROLOGICAL: Awake and alert. Moves all extremity. Normal speech.no focal neurological deficit A/P Assessment and Plan 1. Failure to thrive with progressive weakness and dysphagia Head CT with cerebellar and cerebral atrophy out of proportion to age and widespread white matter demyelination, patient without lateralizing deficits Concern for esophageal stricture given dysphasia, GI consulted appreciated their input, and for EGD with dilatation in a.m. PT OT eval patient most likely will need rehabilitation placement Malnutrition with Albumin 1.6 Regular diet with ensure supplementation once patient able to tolerate by mouth Consult automobile contract clerk 2. Alcohol/tobacco abuse Cessation counseling provided Folate/thiamine/multivitamins [facility] protocol 02/05: Very frail, going for GI scope today still with hypotension, will give a bolus of iv fluid, may need to be transferred to ICU Jose Medrano MD Feb 05, 2017 22:14
[2017-02-06] VITALS (10 sets, daily range): BP systolic 91–117; BP diastolic 51–73; PULSE 85–111; RESP 24–31; TEMP 98.2–100.3; O2SAT 86–97
[2017-02-06] MEDS: INSULIN NovoLIN REGULAR SUPPLEMENTAL SCALE SQ SCH ×6 (00:30→20:30)
[2017-02-06] MEDS: CHLORHEXIDINE GLUCONATE 2 % 1 PACK (2 CLOTHS)(taper/protocol) TOPICAL SCH (04:00)
[2017-02-06 07:12] LABS: BICARBONATE 19.3 MEQ/L (21.0-32.0); MAGNESIUM 1.8 MG/DL (1.5-2.5); POTASSIUM 4.3 MEQ/L (3.5-5.1)
[2017-02-06 07:35] LABS: CALCIUM-PROTEIN CORRECTED 8.3 MG/DL (8.5-10.1)
[2017-02-06 07:44] LABS: AUTOMATED NEUTROPHIL # 3.5 TH/MM3 (1.8-7.7); BASOPHIL % 0.7 % (0.0-2.0); EOSINOPHIL % 0.3 % (0.0-4.0); HEMATOCRIT 31.4 % (35.0-46.0); HEMO FLAGS DIFF FINAL; LYMPH % 25.7 % (9.0-44.0); LYMPHOCYTE # 1.4 TH/MM3 (1.0-4.8); MEAN CELL VOLUME 98.4 FL (80.0-100.0); MEAN CORPUSCULAR HEMOGLOBIN 33.6 PG (27.0-34.0); MEAN CORPUSCULAR HGB CONC 34.2 % (32.0-36.0); MONO % 7.3 % (0.0-8.0); PLATELET COUNT 136 TH/MM3 (150-450); RED BLOOD COUNT 3.19 MIL/MM3 (4.00-5.30); RED CELL DISTRIBUTION WIDTH 14.4 % (11.6-17.2); WHITE BLOOD COUNT 5.3 TH/MM3 (4.0-11.0)
[2017-02-06] MEDS: SODIUM CHLORIDE 0.9% FLUSH 10 ML FLUSH IV FLUSH SCH ×2 (08:02→21:00)
[2017-02-06] MEDS: PANTOPRAZOLE SOD 40 MG DELAYED RELEASE TAB PO SCH ×2 (08:02→21:00)
[2017-02-06] MEDS: FOLIC ACID 1 MG TAB PO SCH (08:02)
[2017-02-06] MEDS: MULTIVITAMINS/MINERALS THERAPEUTIC TAB PO SCH (08:02)
[2017-02-06] MEDS: THIAMINE HCL 100 MG TAB PO SCH (08:02)
[2017-02-06] MEDS ORDERED: ALBUMIN 5% INJ 500 ML IV ONE (12:45)
--- NOTE | 2017-02-06 12:51 | HHI.CCPN ---
Subjective Remarks/Hospital Course Subjective: 02/06: remains hypotensive on vasopressors. still slightly somnolent. denies abdominal pain. lactate normal yesterday. trops negative. ROS negative. Objective Vital Signs Date Time Temp Pulse Resp B/P (MAP) Pulse Ox O2 Delivery O2 Flow Rate FiO2 02/06/17 10:05 94 Nasal Cannula 2.00 02/06/17 04:00 98.2 92 31 108/71 (83) Result Diagram: 02/06/17 0440 02/06/17 0440 Other Results Microbiology Date/Time Source Procedure Growth Status 02/03/17 16:55 Urine Random Urine Urine Culture - Final Viridans Streptococcus Grp Complete Objective Remarks GENERAL: Middle-aged female who appears much older than stated age, lying in bed , somnolent but arousable HEENT: Normocephalic. Atraumatic. Pupils equal, round, reactive, conjugate. Mucous membranes are dry NECK: Trachea is midline. There is no JVD. CHEST: Equal unlabored. Nasal cannula oxygen CARDIOVASCULAR: Normal rate, regular rhythm. Sinus by telemetry on 80 mcg/ minute phenylephrine ABDOMEN: Soft, nontender, nondistended. No guarding. MUSCULOSKELETAL: Pulses 2+. No peripheral edema. NEUROLOGICAL: RASS -1. Follows commands. Somnolent but arousable. A/P Assessment and Plan Assessment: 66-year-old female admitted with failure to 5 and chronic dysphagia was found to have esophagitis, esophageal stricture post procedure day 1 status post esophageal dilation which was complicated by postoperative hypotension requiring phenylephrine infusion. Despite her lactate which was normal, she persists requiring vasopressors. Given GI procedure note which remarks on "small mucosal rent", will obtain CT chest with IV contrast to rule out esophageal injury as a cause for her hypotension. We'll continue IV fluid resuscitation. Follow-up 2-D echo which was ordered yesterday. Remain in ICU she is still hypotensive. Esophagitis Esophageal Stricture Dysphagia - per GI. - diet per GI - continue PPI Hypotension Acute intravascular volume depletion - repeat lactate and trend - continue phenylephrine for goal map > 65 mmHg - LR @ 100 cc/hr - 500mL 5% albumin iv x 1. - CT chest with iv contrast to rule out esophageal stricture Metabolic encephalopathy - unclear etiology - avoid long-acting sedating meds - d/c [facility] protocol and monitor - frequent neuro checks Hyponatremia Hypokalemia Hypomagnesemia - ICU electrolyte protocol - likely hypovolemic hyponatremia, monitor while volume resuscitation - daily bmp Dispo: remain in ICU. Tae Mcgill MD Feb 06, 2017 12:51
--- NOTE | 2017-02-06 14:08 | HHI.GIFU ---
Subjective Remarks Pt resting in bed, lethargic. Remains on phenylephrine. Blood pressure on low side of stable at this time. Lunch tray at beside, pt does not feel like eating. Objective Vitals I&O Vital Signs Date Time Temp Pulse Resp B/P (MAP) Pulse Ox O2 Delivery O2 Flow Rate FiO2 02/06/17 10:05 94 Nasal Cannula 2.00 02/06/17 04:00 98.2 92 31 108/71 (83) 93 02/06/17 00:00 98.6 88 24 117/73 (88) 94 02/05/17 20:07 92 Nasal Cannula 2.00 02/05/17 20:03 100 111/69 02/05/17 20:00 98.1 100 28 96/55 (69) 88 02/05/17 18:26 98.3 90 24 115/69 (84) 96 02/05/17 18:00 98.0 97 16 106/66 (79) 96 02/05/17 17:50 99 Nasal Cannula 2.00 02/05/17 17:30 98.0 64 16 121/65 (83) 95 02/05/17 17:00 71 19 114/58 (76) 97 Nasal Cannula 2 02/05/17 16:45 81 19 98/60 (73) 97 Nasal Cannula 2 02/05/17 16:30 78 19 93/58 (70) 97 Nasal Cannula 2 02/05/17 16:15 98.5 79 19 93/56 (68) 97 Nasal Cannula 2 02/05/17 16:00 82 19 93/59 (70) 98 Nasal Cannula 2 02/05/17 15:45 80 19 108/69 (82) 98 Nasal Cannula 2 02/05/17 15:30 89 83/54 02/05/17 15:30 87 17 81/53 (62) 99 Nasal Cannula 2 02/05/17 15:15 Nasal Cannula 2 02/05/17 15:00 87 17 81/53 (62) 99 Nasal Cannula 2 02/05/17 14:45 94 17 88/57 (67) 99 Nasal Cannula 2 02/05/17 14:30 86 17 81/52 (62) 99 Nasal Cannula 2 02/05/17 14:15 83 17 83/56 (65) 98 Nasal Cannula 2 I/O 12/15/17 12/15/02/05/17 02/06/17 02/06/17 02/06/17 07:00 15:00 23:00 07:00 15:00 23:00 Intake Total 200 ml 1200 ml 250 ml 100 ml Output Total 1 ml Balance 200 ml 1199 ml 250 ml 100 ml Intake Oral 200 ml IV Total 1000 ml 250 ml 100 ml Other 200 ml Output Stool Total 1 ml # Voids 3 2 # Bowel Movements 1 Laboratory Laboratory Tests Test 02/05/17 15:23 02/05/17 16:45 02/05/17 17:40 02/06/17 04:40 White Blood Count 3.4 4.1 5.3 Red Blood Count 2.39 2.60 3.19 Hemoglobin 8.1 9.1 10.8 Hematocrit 23.6 25.8 31.4 Mean Corpuscular Volume 98.6 98.9 98.4 Mean Corpuscular Hemoglobin 34.0 34.8 33.6 Mean Corpuscular Hemoglobin Concent 34.5 35.2 34.2 Red Cell Distribution Width 14.7 14.5 14.4 Platelet Count 96 110 136 Mean Platelet Volume 9.0 9.2 9.8 Neutrophils (%) (Auto) 62.2 63.1 66.0 Lymphocytes (%) (Auto) 28.8 28.8 25.7 Monocytes (%) (Auto) 8.0 7.0 7.3 Eosinophils (%) (Auto) 0.4 0.2 0.3 Basophils (%) (Auto) 0.6 0.9 0.7 Neutrophils # (Auto) 2.1 2.6 3.5 Lymphocytes # (Auto) 1.0 1.2 1.4 Monocytes # (Auto) 0.3 0.3 0.4 Eosinophils # (Auto) 0.0 0.0 0.0 Basophils # (Auto) 0.0 0.0 0.0 CBC Comment AUTO DIFF DIFF FINAL DIFF FINAL Differential Total Cells Counted 100 Neutrophils % (Manual) 75 Band Neutrophils % 5 Lymphocytes % 16 Monocytes % 3 Basophils % 1 Neutrophils # (Manual) 2.7 Differential Comment FINAL DIFF MANUAL Platelet Estimate LOW Platelet Morphology Comment NORMAL Blood Urea Nitrogen 2 3 Creatinine LESS THAN 0.15 0.16 Random Glucose 114 101 Total Protein 3.0 3.8 Calcium Level 6.3 6.5 Phosphorus Level 2.0 3.7 Magnesium Level 1.2 1.8 Sodium Level 133 132 Potassium Level 2.8 4.3 Chloride Level 103 104 Carbon Dioxide Level 23.3 19.3 Anion Gap 7 9 Estimat Glomerular Filtration Rate 498 463 Lactic Acid Level 0.9 Protein Corrected Calcium 8.5 8.3 Total Creatine Kinase 96 Troponin I 0.03 Nasal Screen MRSA (PCR) MRSA NOT DETECTED Hematology Comments Date/Time Source Procedure Growth Status 02/03/17 16:55 Urine Random Urine Urine Culture - Final Viridans Streptococcus Grp Complete Imaging Last Impressions Head CT 02/03/171707 Signed Impressions: Service Date/Time: Friday, February 03, 2017 17:46 - CONCLUSION: 1. Cerebral and cerebellar atrophy out of proportion to age. 2. Redemonstration of widespread white matter demyelination. 3. No acute intracranial amount. Edin Whittaker MD Chest X-Ray 02/03/171707 Signed Impressions: Service Date/Time: Friday, February 03, 2017 17:52 - CONCLUSION: 1. No active disease. No effusion or pneumothorax. Rudi Plunkett MD Cervical Spine CT 02/03/171707 Signed Impressions: Service Date/Time: Friday, February 03, 2017 17:46 - CONCLUSION: 1. No acute findings. Stable degenerative changes compared with 2016. Rudi Plunkett MD Physical Exam HEENT: Normocephalic; atraumatic; no jaundice CHEST: Even/unlabored CARDIAC: RRR ABDOMEN: Soft, nondistended, nontender; no hepatosplenomegaly; bowel sounds active x 4. EXTREMITIES: No clubbing, cyanosis, or edema. SKIN: Normal; no rash; no jaundice. DENTAL FRONT OFFICE ASSISTANT: No focal deficits; alert and oriented times three. Assessment and Plan Plan ASSESSMENT - Dysphagia - globus sensation, regurgitation, worse with solids. hx stricture , esophagitis. S/P EGD (02/05) --> EGD performed with balloon dilatation of stricture at GE junction. Balloon inflated to 13.5, 14.5 and 15.5 mm. Small mucosal rent present. Esophagitis present and biopsies performed. Hiatal hernia present. Gastritis present and biopsy performed in antrum. Duodenitis present. Biopsy pending Pt had hypotensive episode and was transferred to ICU for close monitoring. Her BP is stable, remains on phenylephrine at this time. CT Thorax/Chest ordered by [facility]. - Weakness, poor nutrition status PLAN - Full liquid diet - Consider adding boost or ensure - Ct Thorax/chest pending - Biopsy pending - PPI BID for one week then daily. - Repeat EGD with dilatation in 2 weeks. - Supportive care Pt has been seen and examined by myself and Dr. Heard and this note is written on his behalf Yolanda Stallings Feb 06, 2017 14:08
[2017-02-06] MEDS: LACTATED RINGER'S 1000 ML INJ 1,000 ML IV SCH ×2 (14:58→22:45)
[2017-02-06] MEDS: PHENYLEPHRINE 40 MG in D5W 500 ML IV PRN (17:29)
[2017-02-06] MEDS: LEVOFLOXACIN 500 MG PREMIX INJ 100 ML IV SCH (18:14)
[2017-02-06] MEDS ORDERED: IOHEXOL 350 MG/ML 10 ML VIAL (for RAD DIAG) IVCONTRAST ONE (21:28)
--- NOTE | 2017-02-06 21:50 | RADRPT ---
EXAM DATE/TIME: 02/06/2017 21:08 [place] COMPARISON: No previous studies available for comparison. INDICATIONS : Shortness of breath. Possible esophageal injury. IV CONTRAST: 65 cc Omnipaque 350 (iohexol) IV RADIATION DOSE: 5.62 CTDIvol (mGy) MEDICAL HISTORY : Seizures. Hernia, hiatal. SURGICAL HISTORY : None. ENCOUNTER: Initial ACUITY: 1 day PAIN SCALE: 0/10 LOCATION: chest TECHNIQUE: Volumetric scanning of the chest was performed. Using automated exposure control and adjustment of t he mA and/or kV according to patient size, radiation dose was kept as low as reasonably achievable to obtain optimal diagnostic quality images. DICOM format image data is available electronically for review and comparison. Follow-up recommendations for detected pulmonary nodules are based at a minimum on nodule size and pa tient risk factors according to Fleischner Society Guidelines. FINDINGS: There are moderate bilateral pleural effusions with compressive atelectasis in both lower lobes. Ther e is underlying emphysema and perihilar airspace consolidation bilaterally most characteristic of bro nchopneumonia. No pneumomediastinum is identified patient with reported history of esophageal dilatat ion. There is a hiatal hernia. Mild mediastinal adenopathy present. There is mild periportal edema in the liver. Mild anasarca. Mild ascites. CONCLUSION: 1. Moderate bilateral pleural effusions with compressive atelectasis in both lower lobes. 2. Mild mediastinal adenopathy. No pneumomediastinum. Bilateral mostly perihilar airspace consolidation most characteristic of bronchopneumonia with underl molly emphysema. Rudi Plunkett MD on February 06, 2017 at 21:43 Board Certified Radiologist. This report was verified electronically.
[2017-02-07] VITALS (17 sets, daily range): BP systolic 108–130; BP diastolic 64–74; PULSE 105–130; RESP 31–37; TEMP 98.2–100.3; O2SAT 75–96
[2017-02-07] MEDS: INSULIN NovoLIN REGULAR SUPPLEMENTAL SCALE SQ SCH ×6 (00:26→20:30)
[2017-02-07] MEDS: RESP: ALBUTEROL 2.5 MG/IPRATROPIUM 0.5 MG NEB (PRN) NEB (00:46)
[2017-02-07] MEDS: CHLORHEXIDINE GLUCONATE 2 % 1 PACK (2 CLOTHS)(taper/protocol) TOPICAL SCH (04:00)
[2017-02-07 04:25] LABS: HEMATOCRIT 31.6 % (35.0-46.0); MEAN CELL VOLUME 98.1 FL (80.0-100.0); MEAN CORPUSCULAR HEMOGLOBIN 33.5 PG (27.0-34.0); MEAN CORPUSCULAR HGB CONC 34.1 % (32.0-36.0); PLATELET COUNT 141 TH/MM3 (150-450); RED BLOOD COUNT 3.22 MIL/MM3 (4.00-5.30); RED CELL DISTRIBUTION WIDTH 14.6 % (11.6-17.2); REVIEW FLAG FINAL; WHITE BLOOD COUNT 5.3 TH/MM3 (4.0-11.0)
[2017-02-07 05:34] LABS: BICARBONATE 23.6 MEQ/L (21.0-32.0); POTASSIUM 3.4 MEQ/L (3.5-5.1)
[2017-02-07 05:48] LABS: CALCIUM-PROTEIN CORRECTED 8.5 MG/DL (8.5-10.1)
[2017-02-07] MEDS: MULTIVITAMINS/MINERALS THERAPEUTIC TAB PO SCH (08:17)
[2017-02-07] MEDS: THIAMINE HCL 100 MG TAB PO SCH (08:17)
[2017-02-07] MEDS: SODIUM CHLORIDE 0.9% FLUSH 10 ML FLUSH IV FLUSH SCH ×2 (08:17→22:58)
[2017-02-07] MEDS: FOLIC ACID 1 MG TAB PO SCH (08:17)
[2017-02-07] MEDS: PANTOPRAZOLE SOD 40 MG DELAYED RELEASE TAB PO SCH ×2 (08:17→21:00)
[2017-02-07] MEDS ORDERED: VANCOMYCIN INJ 900 MG in SODIUM CHLOR 0.9% 250 ML INJ 250 ML IV ONE (08:45)
[2017-02-07] MEDS ORDERED: Vancomycin Consult Pharmacy 1 EA OTHER SCH (08:45)
[2017-02-07] MEDS: PHENYLEPHRINE 40 MG in D5W 500 ML IV PRN ×2 (09:51→22:59)
--- NOTE | 2017-02-07 10:01 | HHI.GIFU ---
Subjective Remarks Patient resting in bed, lethargic. Continues to be on phenylephrine. Blood pressure stable. On non rebreather. Objective Vitals I&O Vital Signs Date Time Temp Pulse Resp B/P (MAP) Pulse Ox O2 Delivery O2 Flow Rate FiO2 02/07/17 06:00 117 02/07/17 04:00 130 02/07/17 04:00 99.2 130 36 114/72 (86) 86 02/07/17 02:00 112 02/07/17 00:59 93 Partial Rebreather 12.00 02/07/17 00:00 99.8 106 34 108/70 (83) 90 Manual Cuff/Auscultation 02/07/17 00:00 106 02/06/17 22:00 111 02/06/17 20:11 94 Simple Mask 10.00 02/06/17 20:00 100.0 105 29 91/51 (64) 86 Manual Cuff/Auscultation 02/06/17 20:00 105 02/06/17 19:55 87 Nasal Cannula 4.00 02/06/17 17:29 93 95/58 02/06/17 16:00 100.2 85 25 101/60 (74) 94 02/06/17 12:00 100.3 88 25 102/62 (75) 97 02/06/17 10:05 94 Nasal Cannula 2.00 I/O 02/06/17 02/06/17 02/06/17 02/07/17 02/07/17 02/07/17 07:00 15:00 23:00 07:00 15:00 23:00 Intake Total 100 ml 350 ml Output Total 900 ml Balance 100 ml 350 ml -900 ml Intake Oral 350 ml IV Total 100 ml Output Urine Total 900 ml # Voids 2 3 # Bowel Movements 1 1 1 Laboratory Laboratory Tests Test 02/06/17 16:49 02/07/17 03:39 02/07/17 04:11 Lactic Acid Level 2.6 White Blood Count 5.3 Red Blood Count 3.22 Hemoglobin 10.8 Hematocrit 31.6 Mean Corpuscular Volume 98.1 Mean Corpuscular Hemoglobin 33.5 Mean Corpuscular Hemoglobin Concent 34.1 Red Cell Distribution Width 14.6 Platelet Count 141 Mean Platelet Volume 9.4 Hematology Comments Blood Urea Nitrogen 3 Creatinine 0.25 Random Glucose 111 Total Protein 4.2 Calcium Level 6.9 Sodium Level 133 Potassium Level 3.4 Chloride Level 101 Carbon Dioxide Level 23.6 Anion Gap 8 Estimat Glomerular Filtration Rate 276 Protein Corrected Calcium 8.5 Date/Time Source Procedure Growth Status 02/03/17 16:55 Urine Random Urine Urine Culture - Final Viridans Streptococcus Grp Complete Imaging Last Impressions Chest CT 02/06/17 0000 Signed Impressions: Service Date/Time: Monday, February 06, 2017 21:08 - CONCLUSION: 1. Moderate bilateral pleural effusions with compressive atelectasis in both lower lobes. 2. Mild mediastinal adenopathy. No pneumomediastinum. Bilateral mostly perihilar airspace consolidation most characteristic of bronchopneumonia with underlying emphysema. Rudi Plunkett MD Head CT 02/03/171707 Signed Impressions: Service Date/Time: Friday, February 03, 2017 17:46 - CONCLUSION: 1. Cerebral and cerebellar atrophy out of proportion to age. 2. Redemonstration of widespread white matter demyelination. 3. No acute intracranial amount. Edin Whittaker MD Chest X-Ray 02/03/171707 Signed Impressions: Service Date/Time: Friday, February 03, 2017 17:52 - CONCLUSION: 1. No active disease. No effusion or pneumothorax. Rudi Plunkett MD Cervical Spine CT 02/03/171707 Signed Impressions: Service Date/Time: Friday, February 03, 2017 17:46 - CONCLUSION: 1. No acute findings. Stable degenerative changes compared with 2016. Rudi Plunkett MD Physical Exam HEENT: Normocephalic; atraumatic; no jaundice CHEST: Tachypnea. On non rebreather. CARDIAC: Tachycardic ABDOMEN: Soft, nondistended, mild diffuse TTP; no hepatosplenomegaly; bowel sounds active x 4. EXTREMITIES: No clubbing, cyanosis, or edema. SKIN: Normal; no rash; no jaundice. SPINNER CONTINUOUS: Lethargic Assessment and Plan Plan ASSESSMENT - Dysphagia - globus sensation, regurgitation, worse with solids. hx stricture , esophagitis. S/P EGD (02/05) --> EGD performed with balloon dilatation of stricture at GE junction. Balloon inflated to 13.5, 14.5 and 15.5 mm. Small mucosal rent present. Esophagitis present and biopsies performed. Hiatal hernia present. Gastritis present and biopsy performed in antrum. Duodenitis present. Biopsy pending Pt had hypotensive episode and was transferred to ICU for close monitoring. - Weakness, poor nutrition status 02/07/17--Patient is lethargic. Does have mild diffuse abdominal tenderness to palpation. On non-rebreather, tachypneic. Blood pressure stable, remains on phenylephrine. Tachycardic. EGD biopsies pending. Chest CT 02/06/17--1. Moderate bilateral pleural effusions with compressive atelectasis in both lower lobes. 2. Mild mediastinal adenopathy. No pneumomediastinum. Bilateral mostly perihilar airspace consolidation most characteristic of bronchopneumonia with underlying emphysema. PLAN - CCM following - NPO - Await EGD biopsies - PPI BID for one week then daily. - Repeat EGD with dilatation in 2 weeks if patient stable - Supportive care - Further recommendations to follow based on results of above Patient seen and examined by Dr. Heard and myself and this note is written on his behalf. Naomi Aguirre Feb 07, 2017 10:01
--- NOTE | 2017-02-07 10:02 | HHI.CCPN ---
Subjective Remarks/Hospital Course Subjective: 02/06: remains hypotensive on vasopressors. still slightly somnolent. denies abdominal pain. lactate normal yesterday. trops negative. ROS negative. 02/07: increasing fio2 requirements. also remains hypotensive on vasopressors. no improvements. CT chest yesterday with evidence of bilateral pulmonary infiltrates, most likely consistent with aspiration. previously, patient had stated she wanted to be DNR, however, today she says "maybe it would be ok for a breathing tube for a short time." ROS positive for shortness of breath, otherwise negative. Objective Vital Signs Date Time Temp Pulse Resp B/P (MAP) Pulse Ox O2 Delivery O2 Flow Rate FiO2 02/07/17 09:51 107 108/68 02/07/17 04:00 99.2 36 86 02/07/17 00:59 Partial Rebreather 12.00 Intake and Output 02/07/17 02/07/17 02/08/17 08:00 16:00 00:00 Output Total 900 ml Balance -900 ml Result Diagram: 02/07/17 0339 02/07/17 0411 Objective Remarks GENERAL: Middle-aged female who appears much older than stated age, lying in bed , somnolent but arousable HEENT: Normocephalic. Atraumatic. Pupils equal, round, reactive, conjugate. Mucous membranes are dry NECK: Trachea is midline. There is no JVD. CHEST: tachypneic this morning. NRB in place. bilateral coarse rales. CARDIOVASCULAR: Normal rate, regular rhythm. Sinus by telemetry on 80 mcg/ minute phenylephrine ABDOMEN: Soft, nontender, nondistended. No guarding. MUSCULOSKELETAL: Pulses 2+. No peripheral edema. NEUROLOGICAL: RASS -1. Follows commands. Somnolent but arousable. A/P Assessment and Plan Assessment: 66-year-old female admitted with failure to thrive and chronic dysphagia was found to have esophagitis, esophageal stricture post procedure day 2 status post esophageal dilation which was complicated by postoperative hypotension requiring phenylephrine infusion. Now worsening hypoxic respiratory failure, likely silent aspiration. she still persists on vasopressors. will broaden abx to include zosyn. send random cortisol level. Remain in ICU- clinically decompensating. may require intubation. Esophagitis Esophageal Stricture Dysphagia - per GI. - NPO. - continue PPI - will need speech eval for formal swallow once improved from respiratory status. Aspiration pneumonia Acute hypoxic respiratory failure - broaden to zosyn, vanc, diflucan, levaquin. - f/u cultures - wean o2 as tolerated for goal spo2 > 90% - may require intubation. Hypotension Acute intravascular volume depletion - continue phenylephrine for goal map > 65 mmHg - LR @ 100 cc/hr - CT chest 02/07: no evidence of esophageal injury. mild mediastinal lymphadenopathy. bilateral pulmonary infiltrates. Metabolic encephalopathy - unclear etiology - avoid long-acting sedating meds - d/c CIWA protocol and monitor - frequent neuro checks Hyponatremia Hypokalemia Hypomagnesemia - ICU electrolyte protocol - likely hypovolemic hyponatremia, monitor while volume resuscitation - daily bmp Dispo: remain in ICU. clinically worse today than yesterday. Tae Mcgill MD Feb 07, 2017 10:01
[2017-02-07] MEDS ORDERED: VANCOMYCIN 1,000 MG/NS 250 ML IV ONE ×2 (11:00)
[2017-02-07] MEDS: PIPERACIL-TAZO 4.5 GM PREMIX 100 ML IV SCH ×3 (11:14→22:58)
[2017-02-07] MEDS: FLUCONAZOLE 400 MG PREMIX BAG 200 ML IV SCH (11:14)
[2017-02-07] MEDS: VANCOMYCIN 1,000 MG/NS 250 ML IV SCH ×2 (13:55)
[2017-02-07] MEDS: LACTATED RINGER'S 1000 ML INJ 1,000 ML IV SCH ×2 (13:55→22:58)
--- NOTE | 2017-02-07 16:45 | ECHRPT ---
Indication: lv function CONCLUSIONS Normal left ventricular size and wall thickness. The left ventricular systolic function is normal wi th an estimated ejection fraction greater than 65%. No definite wall motion abnormalities. There is trace tricuspid valve regurgitation. Trace mitral valve regurgitation. BP: / HR: Rhythm: MEASUREMENTS (Male / Female) Normal Values Technical Quality:Poor 2D ECHO LV Diastolic Diameter PLAX 3.7 cm 4.2 - 5.9 / 3.9 - 5.3 cm LV Systolic Diameter PLAX 2.6 cm IVS Diastolic Thickness 0.7 cm 0.6 - 1.0 / 0.6 - 0.9 cm LVPW Diastolic Thickness 1.0 cm 0.6 - 1.0 / 0.6 - 0.9 cm LV Relative Wall Thickness 0.5 RV Internal Dim ED PLAX 2.0 cm FINDINGS LEFT VENTRICLE Normal left ventricular size and wall thickness. The left ventricular systolic function is normal wi th an estimated ejection fraction greater than 65%. No definite wall motion abnormalities. RIGHT VENTRICLE Normal right ventricular size and systolic function. LEFT ATRIUM The left atrial size is normal. RIGHT ATRIUM The right atrial size is normal. ATRIAL SEPTUM Normal atrial septal thickness without atrial level shunting by limited color doppler interrogation. AORTA The aortic root and proximal ascending aorta are not well visualized. MITRAL VALVE Trace mitral valve regurgitation. AORTIC VALVE Trace aortic valve regurgitation. TRICUSPID VALVE There is trace tricuspid valve regurgitation. PULMONARY VALVE The pulmonary valve is not well visualized. VESSELS The inferior vena cava is normal in size. PERICARDIUM No pericardial effusion. Dakotah Dyer MD (Electronically Signed) Final Date:07 February 2017 16:43
[2017-02-07] MEDS: LEVOFLOXACIN 500 MG PREMIX INJ 100 ML IV SCH (17:30)
[2017-02-07] MEDS ORDERED: MORPHINE SULFATE 2 MG/ML INJ IV PUSH ONE (23:00)
[2017-02-08] VITALS (16 sets, daily range): BP systolic 89–111; BP diastolic 57–64; PULSE 90–153; RESP 26–37; TEMP 96.2–97.6; O2SAT 77–94
[2017-02-08] MEDS: INSULIN NovoLIN REGULAR SUPPLEMENTAL SCALE SQ SCH ×6 (00:30→20:30)
[2017-02-08] MEDS: PIPERACIL-TAZO 4.5 GM PREMIX 100 ML IV SCH ×4 (03:15→21:34)
[2017-02-08 03:26] LABS: HEMATOCRIT 36.4 % (35.0-46.0); MEAN CELL VOLUME 100.5 FL (80.0-100.0); MEAN CORPUSCULAR HEMOGLOBIN 34.3 PG (27.0-34.0); MEAN CORPUSCULAR HGB CONC 34.1 % (32.0-36.0); PLATELET COUNT 149 TH/MM3 (150-450); RED BLOOD COUNT 3.62 MIL/MM3 (4.00-5.30); RED CELL DISTRIBUTION WIDTH 15.1 % (11.6-17.2); REVIEW FLAG FINAL
[2017-02-08 03:50] LABS: BICARBONATE 26.1 MEQ/L (21.0-32.0); POTASSIUM 4.2 MEQ/L (3.5-5.1)
[2017-02-08] MEDS: CHLORHEXIDINE GLUCONATE 2 % 1 PACK (2 CLOTHS)(taper/protocol) TOPICAL SCH (04:00)
--- NOTE | 2017-02-08 04:00 | RADRPT ---
EXAM DATE/TIME: 02/08/2017 03:01 [facility] COMPARISON: CT THORAX W CONTRAST, February 06, 2017, 21:08. CHEST SINGLE AP, February 03, 2017, 17:52. INDICATIONS : Shortness of breath, possible pulmonary disease. MEDICAL HISTORY : Chronic obstructive pulmonary disease. SURGICAL HISTORY : None. ENCOUNTER: Subsequent ACUITY: 4 - 6 days PAIN SCORE: 0/10 LOCATION: Bilateral chest FINDINGS: There is diffuse mixed interstitial and alveolar consolidation seen throughout the lungs. The heart s ize is normal. There is silhouetting of the hemidiaphragms. The effusions can be considered. CONCLUSION: Diffuse consolidation and suspected bilateral effusions. Armand Briscoe MD on February 08, 2017 at 3:56 Board Certified Radiologist. This report was verified electronically.
[2017-02-08 04:03] LABS: CALCIUM-PROTEIN CORRECTED 9.3 MG/DL (8.5-10.1)
[2017-02-08] MEDS: LACTATED RINGER'S 1000 ML INJ 1,000 ML IV SCH ×2 (04:45→12:59)
[2017-02-08] MEDS: MORPHINE SULFATE 2 MG/ML INJ IV PUSH PRN ×5 (08:04→23:56)
[2017-02-08] MEDS: SODIUM CHLORIDE 0.9% FLUSH 10 ML FLUSH IV FLUSH SCH ×2 (08:30→21:34)
[2017-02-08] MEDS: PANTOPRAZOLE SOD 40 MG DELAYED RELEASE TAB PO SCH ×2 (09:00→21:00)
[2017-02-08] MEDS: THIAMINE HCL 100 MG TAB PO SCH (09:00)
[2017-02-08] MEDS: MULTIVITAMINS/MINERALS THERAPEUTIC TAB PO SCH (09:00)
[2017-02-08] MEDS: FOLIC ACID 1 MG TAB PO SCH (09:00)
--- NOTE | 2017-02-08 09:30 | HHI.GIFU ---
Subjective Remarks awake , poor historian tachycardia afebrile (Mahnaz Matos) Objective Vitals I&O Vital Signs Date Time Temp Pulse Resp B/P (MAP) Pulse Ox O2 Delivery O2 Flow Rate FiO2 02/08/17 08:00 97.3 02/08/17 08:00 97.3 115 37 111/64 (80) 86 02/08/17 06:00 113 02/08/17 04:00 111 02/08/17 04:00 97.6 111 37 97/62 (74) 86 02/08/17 02:00 112 02/08/17 00:00 115 02/08/17 00:00 97.4 115 36 105/64 (78) 82 02/07/17 23:15 36 02/07/17 22:59 121 117/76 02/07/17 22:12 88 High Flow Nasal Cannula 50.00 100 02/07/17 22:00 124 02/07/17 20:00 125 02/07/17 20:00 98.7 125 34 118/74 (89) 76 02/07/17 18:00 129 02/07/17 16:00 98.2 128 32 130/72 (91) 81 02/07/17 16:00 128 02/07/17 14:38 96 75 02/07/17 14:00 110 02/07/17 12:48 95 BiPAP 75 02/07/17 12:45 75 02/07/17 12:00 99.4 107 31 115/64 (81) 96 02/07/17 12:00 107 02/07/17 10:00 105 02/07/17 09:51 107 108/68 I/O 02/07/17 02/07/17 02/07/17 02/08/17 02/08/17 02/08/17 07:00 15:00 23:00 07:00 15:00 23:00 Intake Total 450 ml 300 ml Output Total 900 ml 1200 ml 750 ml Balance -900 ml 450 ml -900 ml -750 ml Intake Oral 100 ml IV Total 450 ml 200 ml Output Urine Total 900 ml 1200 ml 750 ml # Bowel Movements 1 1 Laboratory Laboratory Tests Test 02/07/17 10:23 02/08/17 03:20 Random Cortisol 21.5 White Blood Count 7.0 Red Blood Count 3.62 Hemoglobin 12.4 Hematocrit 36.4 Mean Corpuscular Volume 100.5 Mean Corpuscular Hemoglobin 34.3 Mean Corpuscular Hemoglobin Concent 34.1 Red Cell Distribution Width 15.1 Platelet Count 149 Mean Platelet Volume 9.0 Blood Urea Nitrogen 3 Creatinine 0.29 Random Glucose 151 Total Protein 4.0 Calcium Level 7.4 Sodium Level 134 Potassium Level 4.2 Chloride Level 101 Carbon Dioxide Level 26.1 Anion Gap 7 Estimat Glomerular Filtration Rate 233 Protein Corrected Calcium 9.3 Date/Time Source Procedure Growth Status 02/07/17 10:36 Blood Peripheral Aerobic Blood Culture Pending Received 02/07/17 10:36 Blood Peripheral Anaerobic Blood Culture Pending Received 02/03/17 16:55 Urine Random Urine Urine Culture - Final Viridans Streptococcus Grp Complete Imaging Last Impressions Chest X-Ray 02/08/17 0600 Signed Impressions: Service Date/Time: Wednesday, February 08, 2017 03:01 - CONCLUSION: Diffuse consolidation and suspected bilateral effusions. Armand Briscoe MD Chest CT 02/06/17 0000 Signed Impressions: Service Date/Time: Monday, February 06, 2017 21:08 - CONCLUSION: 1. Moderate bilateral pleural effusions with compressive atelectasis in both lower lobes. 2. Mild mediastinal adenopathy. No pneumomediastinum. Bilateral mostly perihilar airspace consolidation most characteristic of bronchopneumonia with underlying emphysema. Rudi Plunkett MD Head CT 02/03/171707 Signed Impressions: Service Date/Time: Friday, February 03, 2017 17:46 - CONCLUSION: 1. Cerebral and cerebellar atrophy out of proportion to age. 2. Redemonstration of widespread white matter demyelination. 3. No acute intracranial amount. Edin Whittaker MD Cervical Spine CT 02/03/171707 Signed Impressions: Service Date/Time: Friday, February 03, 2017 17:46 - CONCLUSION: 1. No acute findings. Stable degenerative changes compared with 2016. Rudi Plunkett MD Physical Exam HEENT: Normocephalic; atraumatic; no jaundice CHEST: Tachypnea. O2, decreased BS at bases CARDIAC: Tachycardic ABDOMEN: Soft, nondistended; no hepatosplenomegaly; bowel sounds active x 4. EXTREMITIES: No clubbing, cyanosis, or edema. SKIN: Normal; no rash; no jaundice. CAREER TECHNICAL COUNSELOR: awake, poor historian (Mahnaz Matos) Assessment and Plan Plan ASSESSMENT - Dysphagia - globus sensation, regurgitation, worse with solids. hx stricture , esophagitis. S/P EGD (02/05) --> EGD performed with balloon dilatation of stricture at GE junction. Balloon inflated to 13.5, 14.5 and 15.5 mm. Small mucosal rent present. Esophagitis present and biopsies performed. Hiatal hernia present. Gastritis present and biopsy performed in antrum. Duodenitis present. Biopsy pending Pt had hypotensive episode and was transferred to ICU for close monitoring. - Weakness, poor nutrition status 02/08/17--Patient is awake, responds to some abd tenderness, BS soft. O2 is weaning slowly, still tachycardic Blood pressure stable, remains on phenylephrine. Tachycardic. EGD biopsies pending. Chest CT 02/06/17--1. Moderate bilateral pleural effusions with compressive atelectasis in both lower lobes. 2. Mild mediastinal adenopathy. No pneumomediastinum. Bilateral mostly perihilar airspace consolidation most characteristic of bronchopneumonia with underlying emphysema. PLAN - NPO, Speech eval pending. Check safety with swallow. - Await EGD biopsies - PPI BID for one week PO then daily. - Repeat EGD with dilatation in 2 weeks if patient stable - Supportive care - Further recommendations to follow based on results of above Code status DNR, No Code Patient seen and examined by Dr. Smith and myself and this note is written on his behalf. (Mahnaz Matos) Physician Comments Seen and examined, plan as above. Further recommendations to follow. (Satish Smith MD) Mahnaz Matos Feb 08, 2017 09:30 Satish Smith MD Feb 08, 2017 15:54
[2017-02-08] MEDS: RESP: ALBUTEROL 2.5 MG/IPRATROPIUM 0.5 MG NEB (PRN) NEB ×2 (10:23→21:29)
[2017-02-08] MEDS: FLUCONAZOLE 400 MG PREMIX BAG 200 ML IV SCH (10:29)
[2017-02-08] MEDS: VANCOMYCIN 1,000 MG/NS 250 ML IV SCH ×2 (12:17)
[2017-02-08] MEDS ORDERED: AMIODARONE INJ 150 MG in DEXTROSE 5% IN WATER 100ML INJ 100 ML IV ONE ×2 (12:34)
[2017-02-08] MEDS ORDERED: AMIODARONE INJ 450 MG in DEXTROSE 5% IN WATE(EXCEL) INJ 241 ML IV PRN ×2 (12:44)
--- NOTE | 2017-02-08 13:30 | HHI.CCPN ---
Subjective Remarks/Hospital Course Subjective: 02/06: remains hypotensive on vasopressors. still slightly somnolent. denies abdominal pain. lactate normal yesterday. trops negative. ROS negative. 02/07: increasing fio2 requirements. also remains hypotensive on vasopressors. no improvements. CT chest yesterday with evidence of bilateral pulmonary infiltrates, most likely consistent with aspiration. previously, patient had stated she wanted to be DNR, however, today she says "maybe it would be ok for a breathing tube for a short time." ROS positive for shortness of breath, otherwise negative. 02/08: still very hypoxic. now in new-onset afib RVR. bedside echo again confirms that she does not appear volume overloaded: grossly preserved biventricular function, collapsable IVC, no pericardial effusion. neck veins are flat on exam. net negative fluid balance despite replacement. on high flow NC. still DNR. patient talked to palliative today and is considering hospice due to her chronic deconditioning and downhill course over last few months. remains on vasopressors without improvement. Objective Vital Signs Date Time Temp Pulse Resp B/P (MAP) Pulse Ox O2 Delivery O2 Flow Rate FiO2 02/08/17 10:24 87 High Flow Nasal Cannula 35.00 100 02/08/17 08:00 97.3 02/08/17 08:00 115 37 111/64 (80) Intake and Output 02/08/17 02/08/17 02/09/17 08:00 16:00 00:00 Output Total 750 ml Balance -750 ml Result Diagram: 02/08/17 0320 02/08/17 0320 Imaging Last Impressions Chest X-Ray 02/08/17 0600 Signed Impressions: Service Date/Time: Wednesday, February 08, 2017 03:01 - CONCLUSION: Diffuse consolidation and suspected bilateral effusions. Armand Briscoe MD Chest CT 02/06/17 0000 Signed Impressions: Service Date/Time: Monday, February 06, 2017 21:08 - CONCLUSION: 1. Moderate bilateral pleural effusions with compressive atelectasis in both lower lobes. 2. Mild mediastinal adenopathy. No pneumomediastinum. Bilateral mostly perihilar airspace consolidation most characteristic of bronchopneumonia with underlying emphysema. Rudi Plunkett MD Head CT 02/03/17 1708 Signed Impressions: Service Date/Time: Friday, February 03, 2017 17:46 - CONCLUSION: 1. Cerebral and cerebellar atrophy out of proportion to age. 2. Redemonstration of widespread white matter demyelination. 3. No acute intracranial amount. Edin Whittaker MD Cervical Spine CT 02/03/17 1706 Signed Impressions: Service Date/Time: Friday, February 03, 2017 17:46 - CONCLUSION: 1. No acute findings. Stable degenerative changes compared with 2016. Rudi Plunkett MD Objective Remarks GENERAL: frail, middle-aged female who appears much older than stated age, lying in bed, awake and alert. HEENT: Normocephalic. Atraumatic. Pupils equal, round, reactive, conjugate. Mucous membranes are dry NECK: Trachea is midline. There is no JVD. neck veins are completely flat. CHEST: tachypneic. high flow nc o2. bilateral coarse rales without improvement. CARDIOVASCULAR: tachycardic rate in the 160s, irregular rhythm. afib by tele. remains on 80 mcg/minute phenylephrine ABDOMEN: Soft, nontender, nondistended. No guarding. MUSCULOSKELETAL: Pulses 1+. No peripheral edema. NEUROLOGICAL: RASS 0. Follows commands. A/P Assessment and Plan Assessment: 66-year-old female admitted with failure to thrive and chronic dysphagia was found to have esophagitis, esophageal stricture post procedure day 3 status post esophageal dilation which was complicated by postoperative hypotension requiring phenylephrine infusion. Now worsening hypoxic respiratory failure, likely silent aspiration. she still persists on vasopressors. now with what appears to be severe aspiration pneumonitis or ARDS. clinically continues to decline. now in afib RVR. palliative involved. no meaningful improvements in her overall function. Esophagitis Esophageal Stricture Dysphagia - per GI. - NPO. - continue PPI - will need speech eval for formal swallow once improved from respiratory status. Atrial fibrillation with rapid ventricular response likely volume status, hypoxia, electrolyte, and SIRS related. amiodarone bolus and drip mgso4 2gm iv x 1 continue iv fluids will attempt to avoid beta blockers given already present hypotension. Aspiration pneumonia Acute hypoxic respiratory failure Severe aspiration pneumonitis vs. ARDS - continue zosyn, vanc, diflucan, levaquin. - f/u cultures - wean o2 as tolerated for goal spo2 > 90% Hypotension Acute intravascular volume depletion - continue phenylephrine for goal map > 65 mmHg - LR @ 100 cc/hr - CT chest 02/07: no evidence of esophageal injury. mild mediastinal lymphadenopathy. bilateral pulmonary infiltrates. Metabolic encephalopathy - resolved. - unclear etiology - avoid long-acting sedating meds - off CIWA protocol and monitor - frequent neuro checks Hyponatremia - resolving. Hypokalemia Hypomagnesemia - ICU electrolyte protocol - likely hypovolemic hyponatremia, monitor while volume resuscitation - daily bmp Dispo: remain in ICU. continues to worsen. Repeat conversations have confirmed the patient is DNR per her wishes. palliative continues to follow along. Tae Mcgill MD Feb 08, 2017 13:30
[2017-02-08] MEDS ORDERED: DILTIAZEM HCL 25 MG/5 ML VIAL IV ONE (16:00)
[2017-02-08] MEDS: MAGNESIUM SULFATE 1 GM PREMIX 100 ML IV SCH ×2 (17:44→23:10)
[2017-02-08] MEDS: LEVOFLOXACIN 500 MG PREMIX INJ 100 ML IV SCH (18:49)
--- NOTE | 2017-02-08 21:36 | HHI.HCPN ---
Reason for visit a. To assist with evaluation and management of symptoms including: debility , dysphagia, dyspnea. b. To assist medical decision maker(s) with: better understanding of current medical conditions; weighing benefits/burdens of medical treatment options; making medical treatment decisions. . Subjective/Interval History LATE ENTRY: Seen 11am. Patient seen and examined in ICU. No family/friends at bedside. Also present TA[facility]. Discussed with Dr. Mcgill. On 02/07/17, she required increasing FIO2 needs, hypotensive on vasopressors. CT chest with evidence of bilateral pulmonary infiltrates, most likely consistent with aspiration. On multiple occaisions she patient had stated she wanted to be DNR. On 02/08/17, she remains hypoxic (sats 70-80's). Developed new-onset afib RVR. Dr. Mcgill notes indicate bedside echo revealed she did not appear volume overloaded: grossly preserved biventricular function, collapsable IVC, no pericardial effusion. neck veins are flat on exam. net negative fluid balance despite replacement. on high flow NC. still desires DNR. Patient is awake and alert. She recalls her prior conversation with Dr. Mcgill tells me he told her he was trying to get her oxygen numbers up. She tells me if we are unable to get her oxygen levels up she could . She does not want "heroic measures." She does not want to be intubated or placed on pomerene hospital ventilation. She does not cardiac resuscitation. She is on high flow oxygen. Oxygen saturations 70-80s. Patient denies shortness of breath. Afebrile. Hypotensive. Tachycardic. She again indicates she would want her friend, Rachid to serve as [facility] should she lose capacpty. She tells me she does not know his last name. She asks my assistance to get his number from her phone. She tells me Rachid will be coming after work tonight. She would like to speak with him in person before completing designation of [facility] paperwork. She will talk to him tonight, get his last name and complete the [facility] paperwork if he agrees to serve. She is going to talk to him about her wishes and is considering hospice, wants to speak with him before making additional decisions. . Family/friend interactions No family/ friends present. . Advance Directives Living Will: Never completed Health Care Surrogate: Never completed Durable Power of Conveyor Technician: Never completed Advance Directive Specifics Health Care Surrogate(s): Patient stated that she wants a friend of hers by the name Rachid to serve as her health care surrogate. Unfortunately she could not remember his last name but she said that she has his contact number in her cellphone. She also mentioned that she currently lives on his property. . Significant change in goals: NO CODE (DNR/DNI). Considering hospice services, not ready to make a decision today. Wants to speak with her friend Rachid before making decisions. . Objective Vital Signs Date Time Temp Pulse Resp B/P (MAP) Pulse Ox O2 Delivery O2 Flow Rate FiO2 02/08/17 19:24 96.5 93 26 90/59 (69) 78 02/08/17 18:00 111 02/08/17 17:44 153 97/59 02/08/17 16:00 142 02/08/17 15:00 97.5 90 34 90/59 (69) 78 02/08/17 14:00 146 02/08/17 12:00 153 02/08/17 12:00 97.3 153 36 105/59 (74) 79 02/08/17 10:24 87 High Flow Nasal Cannula 35.00 100 02/08/17 10:00 114 02/08/17 08:00 97.3 02/08/17 08:00 97.3 115 37 111/64 (80) 86 02/08/17 08:00 115 02/08/17 06:00 113 02/08/17 04:00 111 02/08/17 04:00 97.6 111 37 97/62 (74) 86 02/08/17 02:00 112 02/08/17 00:00 115 02/08/17 00:00 97.4 115 36 105/64 (78) 82 02/07/17 23:15 36 02/07/17 22:59 121 117/76 02/07/17 22:12 88 High Flow Nasal Cannula 50.00 100 02/07/17 22:00 124 Physical Exam GENERAL: This is frail, middle-aged female who appears much older than stated age, lying in bed, awake and alert. HEAD: Normocephalic. Atraumatic. EYES: Pupils equal, round, reactive, conjugate. MOUTH: Mucous membranes are dry NECK: Trachea midline. No JVD. CHEST: Tachypneic. On High flow oxygen. Bilateral coarse rales. CARDIOVASCULAR: Tachycardic rate in the 160s, irregular rhythm. A. Fib on monitor. ABDOMEN: Soft, nontender, nondistended. No guarding. MUSCULOSKELETAL: Pulses 1+. No peripheral edema. NEUROLOGICAL: Awake and alert, Answers questions. Follows commands. . Diagnostic Tests Laboratory Laboratory Tests Test 02/06/17 04:40 02/06/17 16:49 02/07/17 03:39 02/07/17 04:11 White Blood Count 5.3 TH/MM3 (4.0-11.0) 5.3 TH/MM3 (4.0-11.0) Red Blood Count 3.19 MIL/MM3 (4.00-5.30) 3.22 MIL/MM3 (4.00-5.30) Hemoglobin 10.8 GM/DL (11.6-15.3) 10.8 GM/DL (11.6-15.3) Hematocrit 31.4 % (35.0-46.0) 31.6 % (35.0-46.0) Mean Corpuscular Volume 98.4 FL (80.0-100.0) 98.1 FL (80.0-100.0) Mean Corpuscular Hemoglobin 33.6 PG (27.0-34.0) 33.5 PG (27.0-34.0) Mean Corpuscular Hemoglobin Concent 34.2 % (32.0-36.0) 34.1 % (32.0-36.0) Red Cell Distribution Width 14.4 % (11.6-17.2) 14.6 % (11.6-17.2) Platelet Count 136 TH/MM3 (150-450) 141 TH/MM3 (150-450) Mean Platelet Volume 9.8 FL (7.0-11.0) 9.4 FL (7.0-11.0) Neutrophils (%) (Auto) 66.0 % (16.0-70.0) Lymphocytes (%) (Auto) 25.7 % (9.0-44.0) Monocytes (%) (Auto) 7.3 % (0.0-8.0) Eosinophils (%) (Auto) 0.3 % (0.0-4.0) Basophils (%) (Auto) 0.7 % (0.0-2.0) Neutrophils # (Auto) 3.5 TH/MM3 (1.8-7.7) Lymphocytes # (Auto) 1.4 TH/MM3 (1.0-4.8) Monocytes # (Auto) 0.4 TH/MM3 (0-0.9) Eosinophils # (Auto) 0.0 TH/MM3 (0-0.4) Basophils # (Auto) 0.0 TH/MM3 (0-0.2) CBC Comment DIFF FINAL Differential Comment Hematology Comments Blood Urea Nitrogen 3 MG/DL (7-18) 3 MG/DL (7-18) Creatinine 0.16 MG/DL (0.50-1.00) 0.25 MG/DL (0.50-1.00) Random Glucose 101 MG/DL (74-106) 111 MG/DL (74-106) Total Protein 3.8 GM/DL (6.4-8.2) 4.2 GM/DL (6.4-8.2) Calcium Level 6.5 MG/DL (8.5-10.1) 6.9 MG/DL (8.5-10.1) Phosphorus Level 3.7 MG/DL (2.5-4.9) Magnesium Level 1.8 MG/DL (1.5-2.5) Sodium Level 132 MEQ/L (136-145) 133 MEQ/L (136-145) Potassium Level 4.3 MEQ/L (3.5-5.1) 3.4 MEQ/L (3.5-5.1) Chloride Level 104 MEQ/L (98-107) 101 MEQ/L (98-107) Carbon Dioxide Level 19.3 MEQ/L (21.0-32.0) 23.6 MEQ/L (21.0-32.0) Anion Gap 9 MEQ/L (5-15) 8 MEQ/L (5-15) Estimat Glomerular Filtration Rate 463 ML/MIN (>89) 276 ML/MIN (>89) Protein Corrected Calcium 8.3 MG/DL (8.5-10.1) 8.5 MG/DL (8.5-10.1) Lactic Acid Level 2.6 mmol/L (0.4-2.0) Test 02/07/17 10:23 02/08/17 03:20 Random Cortisol 21.5 MCG/DL White Blood Count 7.0 TH/MM3 (4.0-11.0) Red Blood Count 3.62 MIL/MM3 (4.00-5.30) Hemoglobin 12.4 GM/DL (11.6-15.3) Hematocrit 36.4 % (35.0-46.0) Mean Corpuscular Volume 100.5 FL (80.0-100.0) Mean Corpuscular Hemoglobin 34.3 PG (27.0-34.0) Mean Corpuscular Hemoglobin Concent 34.1 % (32.0-36.0) Red Cell Distribution Width 15.1 % (11.6-17.2) Platelet Count 149 TH/MM3 (150-450) Mean Platelet Volume 9.0 FL (7.0-11.0) Blood Urea Nitrogen 3 MG/DL (7-18) Creatinine 0.29 MG/DL (0.50-1.00) Random Glucose 151 MG/DL (74-106) Total Protein 4.0 GM/DL (6.4-8.2) Calcium Level 7.4 MG/DL (8.5-10.1) Sodium Level 134 MEQ/L (136-145) Potassium Level 4.2 MEQ/L (3.5-5.1) Chloride Level 101 MEQ/L (98-107) Carbon Dioxide Level 26.1 MEQ/L (21.0-32.0) Anion Gap 7 MEQ/L (5-15) Estimat Glomerular Filtration Rate 233 ML/MIN (>89) Protein Corrected Calcium 9.3 MG/DL (8.5-10.1) B-Type Natriuretic Peptide 475 PG/ML (0-100) Result Diagram: 02/08/17 0320 02/08/17 0320 Microbiology Microbiology Date/Time Source Procedure Growth Status 02/07/17 10:36 Blood Peripheral Aerobic Blood Culture - Preliminary NO GROWTH IN 1 DAY Resulted 02/07/17 10:36 Blood Peripheral Anaerobic Blood Culture - Preliminary NO GROWTH IN 1 DAY Resulted 02/07/17 10:23 Blood Peripheral Aerobic Blood Culture - Preliminary NO GROWTH IN 1 DAY Resulted 02/07/17 10:23 Blood Peripheral Anaerobic Blood Culture - Preliminary NO GROWTH IN 1 DAY Resulted Imaging Last Impressions Chest X-Ray 02/08/17 0600 Signed Impressions: Service Date/Time: Wednesday, February 08, 2017 03:01 - CONCLUSION: Diffuse consolidation and suspected bilateral effusions. Armand Briscoe MD Chest CT 02/06/17 0000 Signed Impressions: Service Date/Time: Monday, February 06, 2017 21:08 - CONCLUSION: 1. Moderate bilateral pleural effusions with compressive atelectasis in both lower lobes. 2. Mild mediastinal adenopathy. No pneumomediastinum. Bilateral mostly perihilar airspace consolidation most characteristic of bronchopneumonia with underlying emphysema. Rudi Plunkett MD Head CT 02/03/17 1708 Signed Impressions: Service Date/Time: Friday, February 03, 2017 17:46 - CONCLUSION: 1. Cerebral and cerebellar atrophy out of proportion to age. 2. Redemonstration of widespread white matter demyelination. 3. No acute intracranial amount. Edin Whittaker MD Cervical Spine CT 02/03/17 1708 Signed Impressions: Service Date/Time: Friday, February 03, 2017 17:46 - CONCLUSION: 1. No acute findings. Stable degenerative changes compared with 2016. Rudi Plunkett MD Procedures 02/05/2017: EGD . Assessment and Plan Disease Oriented Problem List: (1) Malnutrition (2) Esophagitis (3) Esophageal stricture (4) Hypokalemia (5) Generalized weakness Symptom Scale: (1) Dysphagia 0-10 Scale: Unable to quantify (2) Debility 0-10 Scale: Unable to quantify Comment: bedbound, unable to ambulate due to debility. (3) Dyspnea 0-10 Scale: Unable to quantify Comment: hypoxia, on high flow O2. Pertinent Non-Medical Issues Psychosocial: Single. No children. Nondenominational: [employer]. Legal: Patient is capacitated to maker her own health care decisions. She is considering completion of designation of [facility], she wants her firend Rachid to serve as HCS. She is going to speak with him 02/08/17 to determine if he is willing to serve. Ethical: No known issues at this time. . Important Contacts * Rachid, friend: * Chantel Kaur, mother: [phone] . Prognosis Ms. Santillan is a 66 year old female with past medical history significant for unspecified esophageal disease status post which she believes to be esophageal dilation many years ago. Patient presented to [facility] ED on 02/03/2017 for evaluation of weakness and inability to get out of bed for an unknown time. Patient has had multiple falls and has not be able to eat food due to dysphagia associated with bolus sensation, regurgitation for approximately 3 weeks. Patient underwent EGD with balloon dilatation or stricture at the GE junction on 02/05/17. Prognosis is guarded. Code Status: No Code Plan * Legal decision maker: Patient currently is able to make her own medical decisions. Patient is considering completion of Designation of Health Care Surrogate paperwork and states that she would like to designate friend, Rachid to be a healthcare surrogate. He is coming to visit 02/08/17 to visit, she wants to discuss with him prior to completion of paperwork, left at bedside. * NO CODE. * Met with patient she is considering HCS paperwork. She is also considering hospice services. She wants to speak with her friend Rachid prior to making additional decisions. She is not ready to make decisions today. * Discussed with Dr. Mcgill. Patient is terminal with persistent hypoxia and hypotension. She does not want heroic measures. (DNR/DNI). SYMPTOMS: * Dysphagia: History of severe esophagitis, tight GE junction. Presented in the ER after 3 weeks of having dysphagia, bolus sensation, regurgitation worse with solids and weight loss. Patient underwent EGD with balloon dilatation or stricture at the GE junction today. * Debility: Patient came in complaining of generalized weakness for approximately a month and inability to ambulate without falling. Reported last fall was on 01/31/17. Patient presented in ER soaked and covered with urine and stool and unable to transfer herself from wheelchair to bed. Physical therapy following patient, and patient requiring maximum assistance with transfer is and unable to ambulate. Continue PT. * Dyspnea: on high flow oxygen with persistent hypoxia. She does not want intubation/ mech vent. Considering hospice. Palliative care will continue to follow the patient during hospital course as condition evolves, to assist patient/decision-maker with understanding of their medical conditions, weighing benefits/burdens of treatment options, for clarification of goals of treatment. Additionally will assist with any symptoms of palliative concern. . Attestation To help prompt me to consider important information that might be impacting today's encounter and assessment, information from prior notes written by myself or my colleagues may have been "brought forward" into today's note. My signature on this note, however, is an attestation that I personally performed the exam, history, and/or decision-making noted today, and, unless otherwise indicated, the interactions with patient, family, and staff as well as the review of records all occurred today. I also attest that the listed assessment and stated plan reflect my best clinical judgment today based on the combination of historical information, prior notes, and today's exam/ interactions. When time spent is documented, it refers only to time spent today by the signer, or if indicated, combined time spent today by collaborating physician/nurse practitioner. Polly New Feb 08, 2017 21:36
[2017-02-08] MEDS: PHENYLEPHRINE 40 MG in D5W 500 ML IV PRN (21:37)
[2017-02-09] VITALS: BP 98/58; PULSE 96; RESP 28; O2SAT 79
[2017-02-09] MEDS: INSULIN NovoLIN REGULAR SUPPLEMENTAL SCALE SQ SCH ×2 (00:30→04:30)
[2017-02-09 02:00] VITALS: PULSE 87
[2017-02-09] MEDS ORDERED: FUROSEMIDE 40 MG/4 ML VIAL IV PUSH ONE (02:15)
[2017-02-09] MEDS: PIPERACIL-TAZO 4.5 GM PREMIX 100 ML IV SCH (02:18)
[2017-02-09] MEDS: MORPHINE SULFATE 2 MG/ML INJ IV PUSH PRN (02:18)
[2017-02-09 04:00] VITALS: BP 82/54; PULSE 83; RESP 25; O2SAT 84
[2017-02-09] MEDS: CHLORHEXIDINE GLUCONATE 2 % 1 PACK (2 CLOTHS)(taper/protocol) TOPICAL SCH (04:00)
[2017-02-09 06:00] VITALS: PULSE 75
[2017-02-09] MEDS: PHENYLEPHRINE 40 MG in D5W 500 ML IV PRN (06:04)
[2017-02-09] MEDS ORDERED: VASOPRESSIN 40 U/D5W 100 ML Shock/septic shock, do NOT titrate until taper off IV SCH ×2 (06:15)
[2017-02-09 06:25] VITALS: BP 76/51; PULSE 77
--- NOTE | 2017-02-09 12:45 | HHI.DS ---
Summary Note Admission Date Feb 05, 2017 at 19:53 Admitting Diagnosis generalized weakness, esophagitis Diagnosis at Time of : Brief History 66-year-old female with past medical history significant for unspecified esophageal disease status post which she believes to be esophageal dilation many years ago presents with weakness and inability to get out of bed for an indeterminate amount of time. The patient reports that she stays in bed and has a friend come over to take care of her every day. The patient endorses new onset dysphagia stating she has been unable to tolerate by mouth food for approximately 3 weeks. She states it feels as though it gets "stuck in her throat." The patient reports that she has had multiple falls over the past month and was unable to transfer from her wheelchair to the bed upon arrival to the emergency department. CBC/BMP: 02/08/17 0320 02/08/17 0320 Significant Findings Laboratory Tests Test 02/06/17 16:49 02/07/17 03:39 02/07/17 04:11 02/07/17 10:23 Lactic Acid Level 2.6 mmol/L (0.4-2.0) Red Blood Count 3.22 MIL/MM3 (4.00-5.30) Hemoglobin 10.8 GM/DL (11.6-15.3) Hematocrit 31.6 % (35.0-46.0) Platelet Count 141 TH/MM3 (150-450) Blood Urea Nitrogen 3 MG/DL (7-18) Creatinine 0.25 MG/DL (0.50-1.00) Random Glucose 111 MG/DL (74-106) Total Protein 4.2 GM/DL (6.4-8.2) Calcium Level 6.9 MG/DL (8.5-10.1) Sodium Level 133 MEQ/L (136-145) Potassium Level 3.4 MEQ/L (3.5-5.1) Test 02/08/17 03:20 Red Blood Count 3.62 MIL/MM3 (4.00-5.30) Mean Corpuscular Volume 100.5 FL (80.0-100.0) Mean Corpuscular Hemoglobin 34.3 PG (27.0-34.0) Platelet Count 149 TH/MM3 (150-450) Blood Urea Nitrogen 3 MG/DL (7-18) Creatinine 0.29 MG/DL (0.50-1.00) Random Glucose 151 MG/DL (74-106) Total Protein 4.0 GM/DL (6.4-8.2) Calcium Level 7.4 MG/DL (8.5-10.1) Sodium Level 134 MEQ/L (136-145) B-Type Natriuretic Peptide 475 PG/ML (0-100) Imaging Last Impressions Chest X-Ray 02/08/17 0600 Signed Impressions: Service Date/Time: Wednesday, February 08, 2017 03:01 - CONCLUSION: Diffuse consolidation and suspected bilateral effusions. Armand Briscoe MD Chest CT 02/06/17 0000 Signed Impressions: Service Date/Time: Monday, February 06, 2017 21:08 - CONCLUSION: 1. Moderate bilateral pleural effusions with compressive atelectasis in both lower lobes. 2. Mild mediastinal adenopathy. No pneumomediastinum. Bilateral mostly perihilar airspace consolidation most characteristic of bronchopneumonia with underlying emphysema. Rudi Plunkett MD Head CT 02/03/17 1708 Signed Impressions: Service Date/Time: Friday, February 03, 2017 17:46 - CONCLUSION: 1. Cerebral and cerebellar atrophy out of proportion to age. 2. Redemonstration of widespread white matter demyelination. 3. No acute intracranial amount. Edin Whittaker MD Cervical Spine CT 02/03/17 170 Signed Impressions: Service Date/Time: Friday, February 03, 2017 17:46 - CONCLUSION: 1. No acute findings. Stable degenerative changes compared with 2016. Rudi Plunkett MD Hospital Course 02/06: remains hypotensive on vasopressors. still slightly somnolent. denies abdominal pain. lactate normal yesterday. trops negative. ROS negative. 02/07: increasing fio2 requirements. also remains hypotensive on vasopressors. no improvements. CT chest yesterday with evidence of bilateral pulmonary infiltrates, most likely consistent with aspiration. previously, patient had stated she wanted to be DNR, however, today she says "maybe it would be ok for a breathing tube for a short time." ROS positive for shortness of breath, otherwise negative. 02/08: still very hypoxic. now in new-onset afib RVR. bedside echo again confirms that she does not appear volume overloaded: grossly preserved biventricular function, collapsable IVC, no pericardial effusion. neck veins are flat on exam. net negative fluid balance despite replacement. on high flow NC. still DNR. patient talked to palliative today and is considering hospice due to her chronic deconditioning and downhill course over last few months. remains on vasopressors without improvement. 02/09: had bradycardic arrest this morning, likely secondary to hypoxemia. given her wishes, life-saving measures were not performed. the patient at 08:23 Tae Mcgill MD Feb 09, 2017 12:45
[2017-02-10] MEDS ORDERED: PHARMACY ORDERED LAB ONE (11:45)
== END 2017-02-09 08:23 | disposition expired | DRG 391 ==
LOC: NEPE 16:19 → NEDA 20:17 → NEPGCP 21:36 → HIMN 02-05 15:42 → HIME 02-05 17:15 → OBSVTOIN 02-05 19:53
PROVIDERS: ADMIT Internal Medicine Critical Care Medicine; ATTEND Internal Medicine Critical Care Medicine
PROC: 0DB68ZX Excision of Stomach, Via Natural or Artificial Opening Endoscopic, Diagnostic (ICD-10-PCS; 2017-02-05)
PROC: 0D738ZZ Dilation of Lower Esophagus, Via Natural or Artificial Opening Endoscopic (ICD-10-PCS; 2017-02-05)
PROC: 0DB58ZX Excision of Esophagus, Via Natural or Artificial Opening Endoscopic, Diagnostic (ICD-10-PCS; principal; 2017-02-05 10:59)
DX: K20.9 Esophagitis, unspecified (principal); G93.41 Metabolic encephalopathy; I46.9 Cardiac arrest, cause unspecified; J96.01 Acute respiratory failure with hypoxia; J69.0 Pneumonitis due to inhalation of food and vomit; E46 Unspecified protein-calorie malnutrition; K22.2 Esophageal obstruction; N39.0 Urinary tract infection, site not specified; E87.1 Hypo-osmolality and hyponatremia; B95.4 Other streptococcus as the cause of diseases classified elsewhere; I95.9 Hypotension, unspecified; J43.9 Emphysema, unspecified; I48.91 Unspecified atrial fibrillation; G31.9 Degenerative disease of nervous system, unspecified; R13.10 Dysphagia, unspecified; K29.80 Duodenitis without bleeding; R62.7 Adult failure to thrive; R29.6 Repeated falls; Z66 Do not resuscitate; E78.5 Hyperlipidemia, unspecified; K44.9 Diaphragmatic hernia without obstruction or gangrene; E86.9 Volume depletion, unspecified; E87.6 Hypokalemia; E83.42 Hypomagnesemia; M19.90 Unspecified osteoarthritis, unspecified site; F17.210 Nicotine dependence, cigarettes, uncomplicated
CPT/HCPCS: 70450; 71010; 71260; 72125; 80048; 80053; 80307; 81001; 82533; 82550; 82552; 82948; 83605; 83735; 83880; 84100; 84155; 84484; 85007; 85025; 85027; 85610; 85730; 87040; 87086; 87641; 88305; 88312; 93005; 93306; 94002; 94150; 94640; 94664; 96361; 96365; 96375; C1726; C9113; G0378; G8987-GP; G8988-GP; J0282; J0330; J1450; J1940; J1956; J2270; J2370; J2405; J2543; J3010; J3370; J3475; J3480; J7030; J7050; J7060; J7120; J7613; P9045; Q9967